=== PATIENT | female | born 1930 | race Caucasian/White ===

== ENCOUNTER 2017-05-16 06:55 | Day surgery (SDC) | payer MEDICARE ==
[2017-05-14 11:39] VITALS: BMI 32.7
[~2017-05-16 06:55] MED LIST: LACTATED RINGERS 1,000 ML IV SCH
[2017-05-16 07:14] VITALS: TEMP 97
[2017-05-16] MEDS ORDERED: LACTATED RINGERS 1,000 ML IV ONE (07:22)
[2017-05-16] MEDS ORDERED: PROPOFOL 10 MG/ML 20 ML VIAL IV ONE (07:40)
--- NOTE | 2017-05-16 07:55 | P.GSHP ---
History of Present Illness H&P Date: 05/16/17 Chief Complaint: Diverticulitis This is a 87-year-old female with complaints of diarrhea and abdominal pain. She has a history of diverticulitis. She presents today for colonoscopy. Past Medical History Past Medical History: Deep Vein Thrombosis (DVT), Eye Disorder, Hyperlipidemia, Hypertension, Osteoarthritis (OA) Additional Past Medical History / Comment(s): GLAUCOMA, chronic DVT's rt leg, diarrhea, severe lower abdominal gas pains, no current rx for cholesterol, History of Any Multi-Drug Resistant Organisms: None Reported Past Surgical History: Adenoidectomy, Appendectomy, Bowel Resection, Cholecystectomy, Hysterectomy, Orthopedic Surgery, Tonsillectomy Additional Past Surgical History / Comment(s): tania CATARACT SURGERY, left leg VEIN STRIPPING, left wrist surgery, Past Anesthesia/Blood Transfusion Reactions: No Reported Reaction Smoking Status: Never smoker - Past Family History Brother(s) Family Medical History: Cancer Sister(s) Family Medical History: Cancer Mother Family Medical History: Deep Vein Thrombosis (DVT) Medications and Allergies Home Medications Medication Instructions Recorded Confirmed Type Aspirin 81 mg PO BID 01/07/16 05/16/17 History Latanoprost [Xalatan 0.005%] 1 drop BOTH EYES HS 01/07/16 05/16/17 History Losartan Potassium 100 mg PO PC-SUPPER 01/07/16 05/16/17 History [place]-3 Fatty Acids [[place]-3] 1,000 mg PO DAILY 01/07/16 05/16/17 History Zolpidem Tartrate [Ambien Cr] 6.25 mg PO HS 01/07/16 05/16/17 History Systane Balance 1 drop BOTH EYES BID 05/14/17 05/16/17 History amLODIPine [Norvasc] 5 mg PO PC-SUPPER 05/14/17 05/16/17 History Allergies Allergy/AdvReac Type Severity Reaction Status Date / Time Sulfa (Sulfonamide Allergy Unknown Verified 05/16/17 07:19 Antibiotics) Tetracyclines Allergy Unknown Verified 05/16/17 07:19 raw eggs Allergy Diarrhea Uncoded 05/16/17 07:19 Surgical - Exam Vital Signs Temp Pulse 97.0 F L 82 05/16/17 07:13 05/16/17 07:13 - General well developed, no distress - Eyes PERRL - ENT normal pinna - Neck no masses - Respiratory normal expansion - Cardiovascular Rhythm: regular - Abdomen Mild left lower quadrant pain Abdomen: soft Assessment and Plan Plan: History of diverticulitis. We'll perform colonoscopy.
--- NOTE | 2017-05-16 08:21 | P.OP ---
Date of Procedure: 05/16/17 Preoperative Diagnosis: Diverticulitis he Postoperative Diagnosis: Diverticulosis Procedure(s) Performed: Colonoscopy Anesthesia: MAC Surgeon: Emil Contreras Pathology: none sent Condition: stable Disposition: PACU Description of Procedure: The patient's placed on the endoscopy table in the lateral position. He received IV sedation. Digital rectal exam was performed which revealed no ebonized. The flexible colonoscope was then placed patient anus passed rotator colon. The ileocecal valve was visualized. The cecum, ascending and transverse colon appeared normal. The descending and sigmoid colon had moderate diverticular changes. There is no evidence of diverticulitis. Scope was then brought back the rectum and this appeared normal. Scope was withdrawn for patient.
[2017-05-16 08:39] VITALS: BP 144/75; PULSE 61; RESP 18
== END 2017-05-16 09:04 | disposition home or self-care (01) ==
LOC: ORWHC2ENDO 06:55
PROVIDERS: ATTEND Surgery
DX: K57.30 Diverticulosis of large intestine without perforation or abscess without bleeding (principal); I10 Essential (primary) hypertension; E78.5 Hyperlipidemia, unspecified; I82.501 Chronic embolism and thrombosis of unspecified deep veins of right lower extremity; H40.9 Unspecified glaucoma; M19.90 Unspecified osteoarthritis, unspecified site; Z79.82 Long term (current) use of aspirin; Z79.899 Other long term (current) drug therapy; Z88.1 Allergy status to other antibiotic agents; Z91.012 Allergy to eggs; Z88.2 Allergy status to sulfonamides
CPT/HCPCS: 45378; J2704

== ENCOUNTER → 2019-01-01 | Outpatient (CLI) | payer MEDICARE ==
--- NOTE | 2019-01-02 10:14 | XR ---
EXAMINATION TYPE: XR lumbar spine 2 or 3V DATE OF EXAM: 01/01/2019 COMPARISON: None HISTORY: Pain x3 weeks TECHNIQUE: Three-view lumbar spine FINDINGS: There 5 lumbar-type tubal bodies. Pedicles are intact. Scoliosis is present with convexity to left centered at L3 There is a 6 lumbar lordosis. Degenerative disc changes are present throughout the lumbar spine. Vacu um disc phenomenon is present L4-5 minimal vacuum disc phenomenon may be present L2-3 L3-4. Retrolist hesis grade 1 approaching grade 2 L4 on L5 may be present. Vertebral body heights are preserved. IMPRESSION: 1. Degenerative disc changes. 2. Scoliosis. 3. Retrolisthesis of L4 on L5. 4. MRI could be performed for additional evaluation.
== END ==
LOC: RADXRMAIN 16:51
PROVIDERS: ATTEND Family Medicine
DX: M43.16 Spondylolisthesis, lumbar region (principal); M51.36 Other intervertebral disc degeneration, lumbar region; M41.86 Other forms of scoliosis, lumbar region
CPT/HCPCS: 72100

== ENCOUNTER → 2019-03-06 | Outpatient (CLI) | payer MEDICARE ==
--- NOTE | 2019-03-06 14:53 | US ---
EXAMINATION TYPE: US venous doppler duplex LE RT DATE OF EXAM: 03/06/2019 2:23 PM COMPARISON: 12/30/2015 CLINICAL HISTORY: M79.604 pain in limb RT. Right leg pain SIDE PERFORMED: Right TECHNIQUE: The lower extremity deep venous system is examined utilizing real time linear array sonog yashira with graded compression, doppler sonography and color-flow sonography. VESSELS IMAGED: External Iliac Vein (EIV) Common Femoral Vein Deep Femoral Vein Greater Saphenous Vein * Femoral Vein Popliteal Vein Small Saphenous Vein * Proximal Calf Veins (* superficial vessels) Grayscale, color doppler, spectral doppler imaging performed of the deep veins of the right lower ext remity. Right Leg: Thready flow in the Femoral Vein to the Popliteal Vein. Patient has history of chronic DV T in right leg at this location seen on the prior of 12/30/2015. 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 Clot burden appears similar.
== END | disposition home or self-care (01) ==
LOC: RADUSWWP 14:02
PROVIDERS: ATTEND Family Medicine
DX: I82.531 Chronic embolism and thrombosis of right popliteal vein (principal); I82.511 Chronic embolism and thrombosis of right femoral vein

== ENCOUNTER 2019-06-04 03:00 | Observation (INO) | payer MEDICARE ==
--- NOTE | 2019-06-04 03:01 | ED ---
General Adult HPI - General Stated complaint: Weakness Time Seen by Provider: 06/04/19 03:01 - History of Present Illness Initial comments: Shi is a pleasant 89-year-old female who presents the ER today via EMS. Patient reports that she went out to lunch yesterday, she began having some gassy abdominal pain throughout the day. She reports that when she went to bed she had crampy abdominal pain and was unable to sleep. Around 11:30 PM she got up and walked to the restroom where she reports she had about 90 minutes of nausea and diarrhea. Patient reports onset diarrhea subsided she attempted to get up to walk back to bed however she felt weak and unable to ambulate although it back to the bed so she laid down in the bathroom. She waited for approximately 90 more minutes but continued to feel nauseated week and can get back to bed at which time she decided to come to the ER for further evaluation. Upon her evaluation patient reports she still feeling nauseated and has crampy abdominal discomfort though she has not had diarrhea nearly 2 hours, she did take 2 antidiarrheal pills at home prior to coming to the emergency department. Patient denies any fevers chills chest pain or shortness of breath. - Related Data Home Medications Medication Instructions Recorded Confirmed Aspirin 81 mg PO BID 01/07/16 06/04/19 Latanoprost [Xalatan 0.005%] 1 drop BOTH EYES HS 01/07/16 06/04/19 Losartan Potassium 100 mg PO PC-SUPPER 01/07/16 06/04/19 [place]-3 Fatty Acids [[place]-3] 1,000 mg PO DAILY 01/07/16 06/04/19 Zolpidem Tartrate [Ambien Cr] 6.25 mg PO HS 01/07/16 06/04/19 Systane Balance 1 drop BOTH EYES BID 05/14/17 06/04/19 amLODIPine [Norvasc] 5 mg PO PC-SUPPER 05/14/17 06/04/19 Allergies Allergy/AdvReac Type Severity Reaction Status Date / Time Sulfa (Sulfonamide Allergy Unknown Verified 05/16/17 07:19 Antibiotics) Tetracyclines Allergy Unknown Verified 05/16/17 07:19 raw eggs Allergy Diarrhea Uncoded 05/16/17 07:19 Review of Systems ROS Statement: Those systems with pertinent positive or pertinent negative responses have been documented in the HPI. ROS Other: All systems not noted in ROS Statement are negative. Past Medical History Past Medical History: Deep Vein Thrombosis (DVT), Eye Disorder, Hyperlipidemia, Hypertension, Osteoarthritis (OA) Additional Past Medical History / Comment(s): GLAUCOMA, chronic DVT's rt leg, diarrhea, severe lower abdominal gas pains, no current rx for cholesterol, History of Any Multi-Drug Resistant Organisms: None Reported Past Surgical History: Adenoidectomy, Appendectomy, Bowel Resection, Cholecystectomy, Hysterectomy, Orthopedic Surgery, Tonsillectomy Additional Past Surgical History / Comment(s): tania CATARACT SURGERY, left leg VEIN STRIPPING, left wrist surgery, Past Anesthesia/Blood Transfusion Reactions: No Reported Reaction Smoking Status: Never smoker - Past Family History Brother(s) Family Medical History: Cancer Sister(s) Family Medical History: Cancer Mother Family Medical History: Deep Vein Thrombosis (DVT) General Exam - General Exam Comments Initial Comments: Physical Exam GENERAL: Dehydrated female HENT: Normocephalic, Atraumatic. EYES: PERRL, EOMI PULMONARY: Unlabored respirations. No audible rales rhonchi or wheezing was noted. CARDIOVASCULAR: There is a regular rate and rhythm without any murmurs gallops or rubs. ABDOMEN: Soft and nontender with normal bowel sounds. SKIN: Skin is clear with no lesions or rashes and otherwise unremarkable. : Deferred NEUROLOGIC: Patient is alert and oriented x3. Moving all extremities spontaneously MUSCULOSKELETAL: Normal extremities with adequate strength and full range of motion. No lower extremity swelling or edema. No calf tenderness. PSYCHIATRIC: Normal psychiatric evaluation. Course Vital Signs 06/04/19 06/04/19 06/04/19 03:01 03:49 04:00 Temperature 97.8 F Pulse Rate 93 75 79 Respiratory 20 18 23 Rate Blood Pressure 161/85 161/65 O2 Sat by Pulse 96 100 96 Oximetry 06/04/19 06/04/19 06/04/19 04:20 04:40 05:00 Temperature Pulse Rate 77 78 79 Respiratory 23 20 18 Rate Blood Pressure 150/67 143/67 143/67 O2 Sat by Pulse 97 97 97 Oximetry 06/04/19 06/04/19 06/04/19 05:30 06:00 06:10 Temperature Pulse Rate 81 82 85 Respiratory 18 19 19 Rate Blood Pressure 142/63 143/60 148/65 O2 Sat by Pulse 96 96 98 Oximetry 06/04/19 06/04/19 06:11 06:12 Temperature Pulse Rate 85 87 Respiratory 20 19 Rate Blood Pressure 144/65 149/71 O2 Sat by Pulse 97 96 Oximetry EKG Findings - EKG Comments: EKG Findings:: EKG was obtained due to complaint of weakness, EKG obtained at 3:09 AM, rate is 86 rhythm is sinus there is leftward axis with a left fascicular block, normal intervals, IN 136, QRS 106, QTC is [address] elevations or depressions no evidence of acute ischemia, infarction or arrhythmia. Medical Decision Making - Medical Decision Making Patient was seen and evaluated, history is obtained from the patient. This is an 89-year-old female whose appears to be suffering from food poisoning, she has nausea, diarrhea and appears dehydrated on exam. Patient reports generalized weakness and was unable to walk from her doctor back to bed. Labs and imaging were ordered. No previous labs for comparison however patient has elevated BUN and creatinine consistent with dehydration prerenal. IV fluids were ordered. After 1 L of IV fluids patient still feeling quite weak and unwell. Vital signs are stable however given the patient's advanced age and condition I don't feel she is safe for discharge home. Patient will be placed on observation for further IV fluid rehydration and symptomatic management. Orthostatic vital signs were obtained after patient received her fluid bolus. There is no significant change in orthostatic vitals however patient did report feeling very lightheaded and unwell. Patient felt better laying down. - Lab Data Result diagrams: 06/04/19 03:16 06/04/19 03:16 Lab Results 06/04/19 06/04/19 06/04/19 Range/Units 03:16 03:16 03:16 WBC 11.2 H (3.8-10.6) k/uL RBC 4.35 (3.80-5.40) m/uL Hgb 12.0 (11.4-16.0) gm/dL Hct 41.8 (34.0-46.0) % MCV 96.3 (80.0-100.0) fL MCH 27.7 (25.0-35.0) pg MCHC 28.8 L (31.0-37.0) g/dL RDW 13.8 (11.5-15.5) % Plt Count 202 (150-450) k/uL Neutrophils % 83 % Lymphocytes % 9 % Monocytes % 6 % Eosinophils % 1 % Basophils % 1 % Neutrophils # 9.3 H (1.3-7.7) k/uL Lymphocytes # 1.0 (1.0-4.8) k/uL Monocytes # 0.6 (0-1.0) k/uL Eosinophils # 0.1 (0-0.7) k/uL Basophils # 0.1 (0-0.2) k/uL Sodium 140 (137-145) mmol/L Potassium 4.7 (3.5-5.1) mmol/L Chloride 106 (98-107) mmol/L Carbon Dioxide 27 (22-30) mmol/L Anion Gap 7 mmol/L BUN 33 H (7-17) mg/dL Creatinine 1.26 H (0.52-1.04) mg/dL Est GFR (CKD-EPI)AfAm 44 (>60 ml/min/1.73 sqM) Est GFR (CKD-EPI)NonAf 38 (>60 ml/min/1.73 sqM) Glucose 138 H (74-99) mg/dL Calcium 9.7 (8.4-10.2) mg/dL Total Bilirubin 0.4 (0.2-1.3) mg/dL AST 25 (14-36) U/L ALT 24 (9-52) U/L Alkaline Phosphatase 64 (38-126) U/L Troponin I <0.012 (0.000-0.034) ng/mL Total Protein 7.4 (6.3-8.2) g/dL Albumin 4.4 (3.5-5.0) g/dL Lipase 184 (23-300) U/L Disposition Clinical Impression: Food poisoning, Dehydration Disposition: ADMITTED IP TO THIS [facility] Condition: Stable
[2019-06-04] MEDS ORDERED: SODIUM CHLORIDE 0.9% 1,000 ML IV STA (03:49)
[2019-06-04] MEDS ORDERED: ONDANSETRON 4 MG/2 ML VIAL IVP STA (03:49)
[2019-06-04] MEDS ORDERED: DICYCLOMINE 10 MG/ML 2 ML AMP IM STA (03:50)
[2019-06-04 04:06] LABS: Basophils # (A) 0.1 k/uL (0-0.2); Basophils % (A) 1 %; Eosinophils # (A) 0.1 k/uL (0-0.7); Eosinophils % (A) 1 %; HCT 41.8 % (34.0-46.0); Lymphocytes % (A) 9 %; MCH 27.7 pg (25.0-35.0); MCHC 28.8 g/dL (31.0-37.0); MCV 96.3 fL (80.0-100.0); Monocytes # (A) 0.6 k/uL (0-1.0); Monocytes % (A) 6 %; Neutrophils # (A) 9.3 k/uL (1.3-7.7); Neutrophils % (A) 83 %; Platelet Count 202 k/uL (150-450); RBC 4.35 m/uL (3.80-5.40); RDW 13.8 % (11.5-15.5); WBC 11.2 k/uL (3.8-10.6)
[2019-06-04 04:15] LABS: Albumin 4.4 g/dL (3.5-5.0); Calcium 9.7 mg/dL (8.4-10.2); Potassium 4.7 mmol/L (3.5-5.1); Total Bilirubin 0.4 mg/dL (0.2-1.3); Total Protein 7.4 g/dL (6.3-8.2)
--- NOTE | 2019-06-04 04:46 | XR ---
EXAMINATION TYPE: XR KUB DATE OF EXAM: 06/04/2019 COMPARISON: NONE HISTORY: Diarrhea. Weakness TECHNIQUE: 2 views upright FINDINGS: There is no sign of intestinal obstruction or pneumoperitoneum. Fecal pattern is normal. Th ere are clips from cholecystectomy. Lung bases are clear. There are no pathologic calcifications over the kidneys. IMPRESSION: Nonacute abdomen.
[2019-06-04] MEDS ORDERED: NALOXONE 0.4 MG/ML 1 ML VIAL IV PRN (05:33)
[2019-06-04] MEDS ORDERED: ONDANSETRON 4 MG/2 ML VIAL IVP PRN (05:33)
[2019-06-04] MEDS: SODIUM CHLORIDE 0.9% 1,000 ML IV SCH ×2 (05:46→17:34)
[2019-06-04 06:18] LABS: Appearance,Urine Clear (Clear); Bilirubin,Urine Negative (Negative); Blood,Urine Negative (Negative); Color,Urine Yellow; Glucose,Urine (UA) Negative (Negative); Ketones,Urine Negative (Negative); Leukocyte Esterase,Urine Negative (Negative); Nitrite,Urine Negative (Negative); PH, Urine 5.5 (5.0-8.0); Protein,Urine Negative (Negative); Specific Gravity,Urine 1.023 (1.001-1.035); Urobilinogen,Urine <2.0 mg/dL (<2.0)
[2019-06-04] MEDS ORDERED: FAMOTIDINE 20 MG TAB PO SCH (09:00)
[2019-06-04] MEDS: amLODIPine 5 MG TAB PO SCH (13:11)
--- NOTE | 2019-06-04 14:47 | P.HPIM ---
History of Present Illness H&P Date: 06/04/19 Chief Complaint: Nausea and vomiting This is an 89-year-old female one of Dr. 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, patient stated that she was in her usual state of health about yesterday at around 12:30 when she started to have an increased bowel pain associated with increased nausea with dry heaves and no vomiting, patient stated that she ate a beef stew dinner from Saturday that she made and she went yesterday for lunch with her friend and she had an on in supine oriental salad and then she developed to have the left lower quadrant abdominal pain associated with nausea but no vomiting and after that she that will significant diarrhea patient passed out and landed on the floor she hit the back of her head and she crawled to bed then she was brought into the ER for evaluation she had negative orthostatic changes however she was found to have a elevated BUN and creatinine slightly she was given IV fluid resuscitation she was admitted to the hospital she was given antibiotics and she was seen by us later on today she denies any chest pain she does complain of dyspnea on exertion, her EKG was rev iewed showed normal sinus rhythm with what appears to be left anterior fascicular block and because of her dyspnea she will have an echo care gram for evaluation of LV function at this time. Review of Systems Constitutional: Reports weakness, Denies anorexia, Denies chronic headaches, Denies lethargy, Denies malaise Eyes: denies blurred vision, denies bulging eye, denies decreased vision Ears: deny: decreased hearing Ears, nose, mouth and throat: Denies dysphagia, Denies neck lump, Denies sore throat Cardiovascular: Reports decreased exercise tolerance, Reports dyspnea on exertion, Reports shortness of breath, Denies chest pain, Denies lightheadedness, Denies rapid heart beat, Denies syncope Respiratory: Denies congestion, Denies cough, Denies cough with sputum, Denies home oxygen, Denies sleep apnea, Denies snoring, Denies wheezing Gastrointestinal: Reports abdominal pain, Reports bloating, Reports change in bowel habits, Reports diarrhea, Reports melena, Reports nausea, Denies heartburn, Denies hematemesis, Denies hematochezia, Denies indigestion, Denies loss of appetite, Denies vomiting Genitourinary: Denies dysuria, Denies hematuria Menstruation: Reports postmenopausal Musculoskeletal: Denies myalgias Musculoskeletal: absent: ankle pain, ankle stiffness, ankle swelling, elbow pain, elbow stiffness, elbow swelling, foot pain, foot stiffness, foot swelling, hand pain, hand stiffness, hand swelling, hip pain, hip stiffness, hip swelling, knee pain, knee stiffness, knee swelling, shoulder pain, shoulder stiffness, shoulder swelling, wrist pain, wrist stiffness, wrist swelling Integumentary: Denies pruritus, Denies rash Neurological: Denies numbness, Denies weakness Psychiatric: Denies anxiety, Denies depression Endocrine: Denies fatigue, Denies weight change Past Medical History Past Medical History: Deep Vein Thrombosis (DVT), Eye Disorder, Hyperlipidemia, Hypertension, Osteoarthritis (OA) Additional Past Medical History / Comment(s): Diverticulosis/diverticulitis, DVT R leg post bowel resection, DVT L leg as a teen, arthritis in hands/legs and feet, varicosities bilateral legs, glaucoma/macular degeneration bilaterally, not on RX for cholesterol. History of Any Multi-Drug Resistant Organisms: None Reported Past Surgical History: Adenoidectomy, Appendectomy, Bowel Resection, Cholecystectomy, Hysterectomy, Orthopedic Surgery, Tonsillectomy Additional Past Surgical History / Comment(s): Bowel resection for benign lesion, colonoscopies, D&C, left leg vein stripping, left wrist ligament surgery, bilateral cataracts/lens implants Past Anesthesia/Blood Transfusion Reactions: No Reported Reaction Smoking Status: Never smoker - Past Family History Brother(s) Family Medical History: Cancer (Patient had 4 brothers one from esophageal cancer one from diabetes and hypertension and other one with skin cancer.) Additional Family Medical History / Comment(s): skin cancer Sister(s) Family Medical History: Cancer (Patient had 4 sisters one from ovarian cancer and 1 with CAD one with AI and the other one is 94-year-old is okay.) Additional Family Medical History / Comment(s): Uterine cancer Mother Family Medical History: Coronary Artery Disease (CAD) (Mother at age of 85 from CAD also had history of DVT.), Deep Vein Thrombosis (DVT) Father Family Medical History: No Reported History (Father at age 94 from old age had history of sinuses.) Additional Family Medical History / Comment(s): Father was healthy and lived till 94 yrs. Medications and Allergies Home Medications Medication Instructions Recorded Confirmed Type Aspirin 81 mg PO QAM 01/07/16 06/04/19 History Latanoprost [Xalatan 0.005%] 1 drop BOTH EYES HS 01/07/16 06/04/19 History Losartan Potassium 100 mg PO QAM 01/07/16 06/04/19 History [place]-3 Fatty Acids [[place]-3] 1,000 mg PO DAILY 01/07/16 06/04/19 History Zolpidem Tartrate [Ambien Cr] 6.25 mg PO HS 01/07/16 06/04/19 History Systane Balance 1 drop BOTH EYES BID 05/14/17 06/04/19 History amLODIPine [Norvasc] 5 mg PO QAM 05/14/17 06/04/19 History Calcium Carbonate/Vitamin D3 1 tab PO DAILY 06/04/19 06/04/19 History [Calcium 500-Vit D3 200 Tablet] Cholecalciferol [Vitamin D3 (25 1,000 unit PO DAILY 06/04/19 06/04/19 History Mcg = 1000 Iu)] Cranberry Fruit Extract [Cranberry] 200 mg PO DAILY 06/04/19 06/04/19 History Grapeseed 200mg 200 mg PO HS 06/04/19 06/04/19 History Magnesium Citrate 125 mg PO QAM 06/04/19 06/04/19 History Multivitamins, Thera [Multivitamin 1 tab PO DAILY 06/04/19 06/04/19 History (formulary)] Thiamine [Vitamin B-1] 100 mg PO DAILY 06/04/19 06/04/19 History Ubidecarenone [Co Q-10] 200 mg PO QAM 06/04/19 06/04/19 History Vit C/E/Zn/Coppr/Lutein/Zeaxan 1 cap PO HS 06/04/19 06/04/19 History [Preservision Areds 2 Softgel] Vitamin E (Dl,Tocopheryl Acet) 400 unit PO DAILY 06/04/19 06/04/19 History [Vitamin E] Allergies Allergy/AdvReac Type Severity Reaction Status Date / Time Sulfa (Sulfonamide Allergy Unknown Verified 06/04/19 07:39 Antibiotics) influenza virus vaccine qs AdvReac Severe Nausea & Verified 06/04/19 07:39 [id number] (36 mos, up) Vomiting [From Fluarix Quad] Tetracyclines AdvReac Hallucinati Verified 06/04/19 07:39 ons raw eggs AdvReac Diarrhea Uncoded 06/04/19 07:39 Physical Exam Vitals: Vital Signs Temp Pulse Pulse Resp BP BP BP 06/04/19 13:10 76 143/64 06/04/19 07:45 98.0 F 80 16 144/72 06/04/19 06:12 87 19 149/71 06/04/19 06:11 85 20 144/65 06/04/19 06:10 85 19 148/65 06/04/19 06:00 82 19 143/60 06/04/19 05:30 81 18 142/63 06/04/19 05:00 79 18 143/67 06/04/19 04:40 78 20 143/67 06/04/19 04:20 77 23 150/67 06/04/19 04:00 79 23 161/65 06/04/19 03:49 75 18 161/85 06/04/19 03:01 97.8 F 93 20 Pulse Ox 06/04/19 13:10 06/04/19 07:45 94 L 06/04/19 06:12 96 06/04/19 06:11 97 06/04/19 06:10 98 06/04/19 06:00 96 06/04/19 05:30 96 06/04/19 05:00 97 06/04/19 04:40 97 06/04/19 04:20 97 06/04/19 04:00 96 06/04/19 03:49 100 06/04/19 03:01 96 Intake and Output 06/03/19 06/04/19 06/04/19 22:59 06:59 14:59 Intake Total 200 Balance 200 Intake: Oral 200 Other: Voiding Method Toilet # Voids 2 Weight 81.647 kg HEENT: Head is atraumatic, normocephalic, pupils were equal round reactive to light and accommodations, extraocular muscle movement were intact. Neck: Supple, no JVP, no carotid bruit no lymphadenopathy. Chest: Clear to auscultation bilaterally, no crackles no wheezes no chest wall tenderness no intercostal retractions. Heart: First heart sound is depressed, second heart sounds normal, there is no gallop or murmur. Abdomen: Soft mild tenderness to the left lower quadrant no rebound or guarding positive bowel sounds . Extremities: No edema, no calf tenderness, dorsalis pedis +1 bilaterally, bilateral varicose vein. Neurologic examination: Patient is awake alert and oriented 3, cranial nerves II-12 appear grossly intact muscle power 4 out of 5 in upper and lower extremities bilaterally. Results CBC & Chem 7: 06/04/19 03:16 06/04/19 03:16 Labs: Abnormal Lab Results - Last 24 Hours (Table) 06/04/19 06/04/19 Range/Units 03:16 03:16 WBC 11.2 H (3.8-10.6) k/uL MCHC 28.8 L (31.0-37.0) g/dL Neutrophils # 9.3 H (1.3-7.7) k/uL BUN 33 H (7-17) mg/dL Creatinine 1.26 H (0.52-1.04) mg/dL Glucose 138 H (74-99) mg/dL Thrombosis Risk Factor Assmnt - DVT/VTE Prophylaxis DVT/VTE Prophylaxis: Pharmacologic Prophylaxis ordered, Mechanical Prophylaxis ordered - Choose All That Apply Any of the Below Risk Factors Present?: Yes Each Factor Represents 1 point: Obesity (BMI >25) Other Risk Factors: Yes Each Risk Factor Represents 3 Points: Age 75 years or older, Family history of DVT/PE, History of DVT/PE Other congenital or acquired thrombophilia - If yes, enter type in comment: No Thrombosis Risk Factor Assessment Total Risk Factor Score: 10 Thrombosis Risk Factor Assessment Level: High Risk Assessment and Plan Assessment: Assessment and plan: 1. Minimal prerenal azotemia due to severe diarrhea with gastrointestinal fluid loss. Continue IV fluid resuscitation monitor the patient CMP in the next 24 hours, continue patient on antiemetic, advance diet as tolerated. 2. Dyspnea on exertion with abnormal EKG showing sinus rhythm with left anterior fascicular block. Echocardiogram for evaluation of LV function. 3. Hypertension and hypertensive cardiovascular disease continue losartan 100 mg once every day and amlodipine 5 mg orally once every day. 4. Hyperlipidemia. Patient is not on statin. 5. Osteoarthritis. Continue Tylenol as needed. 6. 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 7. Glaucoma. Continue current eyedrops. 8. DVT prophylaxis. Continue with heparin 5000 units subcutaneously every 12 hours. 9. GI prophylaxis. Continue Pepcid 20 mg orally once every day. 10. Admit to inpatient. Estimate a length of stay 2 midnights. 11. Patient's full code.
[2019-06-04] MEDS ORDERED: VIT A,C & E-LUTEIN-MINERALS 1 EACH TAB PO SCH (21:00)
[2019-06-04] MEDS ORDERED: ZOLPIDEM 5 MG TAB PO PRN (21:00)
[2019-06-04] MEDS ORDERED: LATANOPROST 0.005% OPHTH DROPS 2.5 ML BTL BOTH EYES SCH (21:00)
[2019-06-04] MEDS: HEPARIN SODIUM,PORCINE 5,000 UNIT/ML 1 ML VIAL SQ SCH (21:12)
[2019-06-04] MEDS: ARTIFICIAL TEARS-HYPROMELLOSE DROPS 15 ML BTL BOTH EYES SCH (21:12)
[2019-06-05] MEDS: SODIUM CHLORIDE 0.9% 1,000 ML IV SCH ×2 (01:43→07:56)
[2019-06-05] MEDS: amLODIPine 5 MG TAB PO SCH (07:52)
[2019-06-05] MEDS: ARTIFICIAL TEARS-HYPROMELLOSE DROPS 15 ML BTL BOTH EYES SCH (07:52)
[2019-06-05] MEDS: HEPARIN SODIUM,PORCINE 5,000 UNIT/ML 1 ML VIAL SQ SCH (07:53)
[2019-06-05 07:55] LABS: Basophils % (A) 1 %; Eosinophils # (A) 0.2 k/uL (0-0.7); Eosinophils % (A) 3 %; HCT 39.5 % (34.0-46.0); HGB 12.7 gm/dL (11.4-16.0); Lymphocytes # (A) 2.3 k/uL (1.0-4.8); Lymphocytes % (A) 35 %; MCH 31.1 pg (25.0-35.0); MCHC 32.2 g/dL (31.0-37.0); MCV 96.7 fL (80.0-100.0); Mean Platelet Volume 6.2; Monocytes # (A) 0.4 k/uL (0-1.0); Monocytes % (A) 6 %; Neutrophils # (A) 3.4 k/uL (1.3-7.7); Neutrophils % (A) 53 %; Platelet Count 173 k/uL (150-450); RBC 4.09 m/uL (3.80-5.40); RDW 13.6 % (11.5-15.5); WBC 6.4 k/uL (3.8-10.6)
[2019-06-05 08:20] LABS: Albumin 3.9 g/dL (3.5-5.0); Calcium 9.2 mg/dL (8.4-10.2); Potassium 4.7 mmol/L (3.5-5.1); Total Bilirubin 0.7 mg/dL (0.2-1.3); Total Protein 6.8 g/dL (6.3-8.2)
[2019-06-05] MEDS ORDERED: FAMOTIDINE 20 MG TAB PO SCH (09:00)
[2019-06-05] MEDS ORDERED: THIAMINE 100 MG TAB PO SCH (09:00)
[2019-06-05] MEDS ORDERED: LOSARTAN 50 MG TAB PO SCH (09:00)
[2019-06-05] MEDS ORDERED: CALCIUM CARB-VIT D 500MG-200UN 1 EACH TAB PO SCH (09:00)
[2019-06-05] MEDS ORDERED: MULTIVITAMINS, THERA 1 EACH TAB PO SCH (09:00)
[2019-06-05] MEDS ORDERED: CHOLECALCIFEROL 1,000 UNIT TAB PO SCH (09:00)
[2019-06-05] MEDS ORDERED: ASPIRIN 81 MG PO SCH (09:00)
[2019-06-05 14:36] VITALS: BP 133/77; PULSE 70; RESP 16; TEMP 97.5
--- NOTE | 2019-06-05 15:45 | P.DS ---
Providers Date of admission: 06/04/19 05:33 Expected date of discharge: 06/05/19 Attending physician: Olga Albright Primary care physician: Barrie Khan [place] Hospital Course: This is an 89-year-old female one of Dr. 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, patient stated that she was in her usual state of health about yesterday at around 12:30 when she started to have an increased bowel pain associated with increased nausea with dry heaves and no vomiting, patient stated that she ate a beef stew dinner from Saturday that she made and she went yesterday for lunch with her friend and she had an on in supine oriental salad and then she developed to have the left lower quadrant abdominal pain associated with nausea but no vomiting and after that she that will significant diarrhea patient passed out and landed on the floor she hit the back of her head and she crawled to bed then she was brought into the ER for evaluation she had negative orthostatic changes however she was found to have a elevated BUN and creatinine slightly she was given IV fluid resuscitation she was admitted to the hospital she was given antibiotics and she was seen by us later on today she denies any chest pain she does complain of dyspnea on exertion, her EKG was reviewed showed normal sinus rhythm with what appears to be left anterior fascicular block and because of her dyspnea she will have an echo care gram for evaluation of LV function at this time. 06/05: Patient has been afebrile, heart rate 70, blood pressure 133/77, pulse ox 96% on room air. Repeat CBC unremarkable, BUN 20 creatinine 0.95. Echocardiogram was reported as normal ejection fraction, moderate pulmonary hypertension, left atrial enlargement. Formal report will be available later. IV fluids discontinued. Patient states she has had a bowel movement today. Her abdomen is less sore. She has had no nausea or vomiting and is tolerating a diet. Patient will be discharged home today in stable condition. Discharge diagnoses: 1. Acute kidney injury due to severe diarrhea with gastrointestinal fluid loss. 2. Dyspnea on exertion with abnormal EKG showing sinus rhythm with left anter ior fascicular block. 3. Hypertension and hypertensive cardiovascular disease 4. Hyperlipidemia. 5. Osteoarthritis. 6. 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 7. Glaucoma. Discharge plan: Home Impression and plan of care have been directed as dictated by the signing physician. Franchesca Rowan nurse practitioner acting as scribe for signing physician. Patient Condition at Discharge: Good Plan - Discharge Summary Discharge Rx Participant: No New Discharge Prescriptions: Continue Latanoprost [Xalatan 0.005%] 1 drop BOTH EYES HS Zolpidem Tartrate [Ambien Cr] 6.25 mg PO HS Losartan Potassium 100 mg PO QAM Aspirin 81 mg PO QAM Sweet Briar-3 Fatty Acids [Sweet Briar-3] 1,000 mg PO DAILY amLODIPine [Norvasc] 5 mg PO QAM Systane Balance 1 drop BOTH EYES BID Vitamin E (Dl,Tocopheryl Acet) [Vitamin E] 400 unit PO DAILY Thiamine [Vitamin B-1] 100 mg PO DAILY Cholecalciferol [Vitamin D3 (25 Mcg = 1000 Iu)] 1,000 unit PO DAILY Multivitamins, Thera [Multivitamin (formulary)] 1 tab PO DAILY Magnesium Citrate 125 mg PO QAM Grapeseed 200mg 200 mg PO HS Cranberry Fruit Extract [Cranberry] 200 mg PO DAILY Ubidecarenone [Co Q-10] 200 mg PO QAM Calcium Carbonate/Vitamin D3 [Calcium 500-Vit D3 200 Tablet] 1 tab PO DAILY Vit C/E/Zn/Coppr/Lutein/Zeaxan [Preservision Areds 2 Softgel] 1 cap PO HS Discharge Medication List Aspirin 81 mg PO QAM 01/07/16 [History] Latanoprost [Xalatan 0.005%] 1 drop BOTH EYES HS 01/07/16 [History] Losartan Potassium 100 mg PO QAM 01/07/16 [History] Sweet Briar-3 Fatty Acids [Sweet Briar-3] 1,000 mg PO DAILY 01/07/16 [History] Zolpidem Tartrate [Ambien Cr] 6.25 mg PO HS 01/07/16 [History] Systane Balance 1 drop BOTH EYES BID 05/14/17 [History] amLODIPine [Norvasc] 5 mg PO QAM 05/14/17 [History] Calcium Carbonate/Vitamin D3 [Calcium 500-Vit D3 200 Tablet] 1 tab PO DAILY 06/04/19 [History] Cholecalciferol [Vitamin D3 (25 Mcg = 1000 Iu)] 1,000 unit PO DAILY 06/04/19 [History] Cranberry Fruit Extract [Cranberry] 200 mg PO DAILY 06/04/19 [History] Grapeseed 200mg 200 mg PO HS 06/04/19 [History] Magnesium Citrate 125 mg PO QAM 06/04/19 [History] Multivitamins, Thera [Multivitamin (formulary)] 1 tab PO DAILY 06/04/19 [History] Thiamine [Vitamin B-1] 100 mg PO DAILY 06/04/19 [History] Ubidecarenone [Co Q-10] 200 mg PO QAM 06/04/19 [History] Vit C/E/Zn/Coppr/Lutein/Zeaxan [Preservision Areds 2 Softgel] 1 cap PO HS 06/04/19 [History] Vitamin E (Dl,Tocopheryl Acet) [Vitamin E] 400 unit PO DAILY 06/04/19 [History] Follow up Appointment(s)/Referral(s): Barrie Khan MD [Primary Care Provider] - 06/10/19 12:00 pm Patient Instructions/Handouts: Dehydration (DC) Activity/Diet/Wound Care/Special Instructions: activity as tolerated regular diet Echocardiogram completed Discharge Disposition: HOME SELF-CARE
--- NOTE | 2019-06-27 15:50 | ECHOF ---
Referral Reason:LVF MEASUREMENTS -------- HEIGHT: 162.6 cm WEIGHT: 81.6 kg BP: 144/72 RVIDd: 4.2 cm (< 3.3) IVSd: 1.5 cm (0.6 - 1.1) LVIDd: 4.1 cm (3.9 - 5.3) LVPWd: 1.5 cm (0.6 - 1.1) IVSs: 1.6 cm LVIDs: 2.9 cm LVPWs: 2.0 cm LAESV Index (A-L): 40.04 ml/m Ao Diam: 3.5 cm (2.0 - 3.7) AV Cusp: 2.5 cm (1.5 - 2.6) MV EXCURSION: 13.838 mm (> 18.000) MV EF SLOPE: 78 mm/s (70 - 150) EPSS: 0.7 cm MV E Lazaro: 0.89 m/s MV DecT: 176 ms MV A Lazaro: 1.16 m/s MV E/A Ratio: 0.77 RAP: 5.00 mmHg RVSP: 57.70 mmHg FINDINGS -------- Sinus rhythm. This was a technically adequate study. The left ventricular size is normal. There is moderate concentric left ventricular hypertrophy. O verall left ventricular systolic function is normal with, an EF between 55 - 60 %. Increased Lap Gr ida II Diastolic Dysfunction. The right ventricle is severely enlarged. LA is severely dilated >40 ml/m2 RA appears enlarged. Interatrial and interventricular septum intact. The aortic valve is trileaflet and appears structurally normal. Trace amount of aortic regurgitatio n. There is no evidence of aortic stenosis. Mitral valve is thickened with myxomatous degeneration. The mitral valve leaflets are moderate to s everely thickened. Mild mitral annular calcification present. Moderate mitral regurgitation is pr esent. Cannot exclude mitral valve prolapse. Cannot rule out vegetation. Moderate tricuspid regurgitation present. There is moderate to severe pulmonary hypertension. The right ventricular systolic pressure, as measured by Doppler, is 57.70mmHg. Trace/mild (physiologic) pulmonic regurgitation. The aortic root size is normal. Normal inferior vena cava with normal inspiratory collapse consistent with estimated right atrial pre ssure of 5 mmHg. There is no pericardial effusion. CONCLUSIONS -------- 1. Sinus rhythm. 2. This was a technically adequate study. 3. The left ventricular size is normal. 4. There is moderate concentric left ventricular hypertrophy. 5. Overall left ventricular systolic function is normal with, an EF between 55 - 60 %. 6. Increased Lap Grade II Diastolic Dysfunction. 7. The right ventricle is severely enlarged. 8. LA is severely dilated >40 ml/m2 9. RA appears enlarged. 10. Interatrial and interventricular septum intact. 11. The aortic valve is trileaflet and appears structurally normal. 12. Trace amount of aortic regurgitation. 13. There is no evidence of aortic stenosis. 14. The mitral valve leaflets are moderate to severely thickened. 15. Mild mitral annular calcification present. 16. Moderate mitral regurgitation is present. 17. Cannot exclude mitral valve prolapse. 18. Cannot rule out vegetation. 19. Moderate tricuspid regurgitation present. 20. There is moderate to severe pulmonary hypertension. 21. The right ventricular systolic pressure, as measured by Doppler, is 57.70mmHg. 22. Trace/mild (physiologic) pulmonic regurgitation. 23. The aortic root size is normal. 24. Normal inferior vena cava with normal inspiratory collapse consistent with estimated right atrial pressure of 5 mmHg. 25. There is no pericardial effusion. LINE OUT WORKER: Yudith Gutiérrez RDCS
== END 2019-06-05 14:31 | disposition home or self-care (01) ==
LOC: EC 03:00 → 4MS4W 05:33
PROVIDERS: ADMIT Internal Medicine; ATTEND Internal Medicine
DX: R19.7 Diarrhea, unspecified (principal); N17.9 Acute kidney failure, unspecified; E86.0 Dehydration; R11.2 Nausea with vomiting, unspecified; R10.32 Left lower quadrant pain; I44.4 Left anterior fascicular block; R06.09 Other forms of dyspnea; I11.9 Hypertensive heart disease without heart failure; E78.5 Hyperlipidemia, unspecified; I82.501 Chronic embolism and thrombosis of unspecified deep veins of right lower extremity; H40.9 Unspecified glaucoma; E03.9 Hypothyroidism, unspecified; R55 Syncope and collapse; K57.90 Diverticulosis of intestine, part unspecified, without perforation or abscess without bleeding; I83.93 Asymptomatic varicose veins of bilateral lower extremities; H35.30 Unspecified macular degeneration; E66.9 Obesity, unspecified; Z68.30 Body mass index [BMI] 30.0-30.9, adult; M19.072 Primary osteoarthritis, left ankle and foot; M19.071 Primary osteoarthritis, right ankle and foot; M19.041 Primary osteoarthritis, right hand; M19.042 Primary osteoarthritis, left hand; Z79.82 Long term (current) use of aspirin; Z79.899 Other long term (current) drug therapy; Z88.1 Allergy status to other antibiotic agents; Z88.2 Allergy status to sulfonamides; Z91.012 Allergy to eggs; Z90.49 Acquired absence of other specified parts of digestive tract; Z90.710 Acquired absence of both cervix and uterus; Z98.42 Cataract extraction status, left eye; Z98.41 Cataract extraction status, right eye; Z96.1 Presence of intraocular lens; Z80.49 Family history of malignant neoplasm of other genital organs; Z80.9 Family history of malignant neoplasm, unspecified; Z82.49 Family history of ischemic heart disease and other diseases of the circulatory system; Z83.3 Family history of diabetes mellitus; Z80.8 Family history of malignant neoplasm of other organs or systems; Z80.0 Family history of malignant neoplasm of digestive organs; Z80.41 Family history of malignant neoplasm of ovary
CPT/HCPCS: 96361 ×3; 96372 ×2; 96374; 99285; 36415; 93005; 93306; 97161; 80053 ×2; 83690; 84484; 85025 ×2; 81003; 74018; G0378 ×2; J1644 ×2; J2405

== ENCOUNTER → 2020-05-19 | Outpatient (CLI) | payer MEDICARE ==
[2020-05-19 15:36] LABS: HCT 43.2 % (34.0-46.0); HGB 13.6 gm/dL (11.4-16.0); MCH 31.2 pg (25.0-35.0); MCHC 31.4 g/dL (31.0-37.0); MCV 99.4 fL (80.0-100.0); Mean Platelet Volume 7.3; Platelet Count 209 k/uL (150-450); RBC 4.35 m/uL (3.80-5.40); RDW 13.7 % (11.5-15.5); WBC 7.9 k/uL (3.8-10.6)
[2020-05-20 07:18] LABS: African American GFR (CKD) 35.7 (60.0-200.0); Anion Gap 12.7 mmol/L (4.00-12.00); Calcium 10.3 mg/dL (8.7-10.3); Carbon Dioxide 26.3 mmol/L (21.6-31.8); Non-African American GFR(CKD) 30.8 (60.0-200.0); Potassium 5.2 mmol/L (3.5-5.5)
== END | disposition home or self-care (01) ==
LOC: LABWHC1 14:27
PROVIDERS: ATTEND Internal Medicine Interventional Cardiology
DX: N18.9 Chronic kidney disease, unspecified (principal)
CPT/HCPCS: 36415; 80048; 85027

== ENCOUNTER → 2020-05-25 | Outpatient (CLI) | payer MEDICARE ==
[2020-05-25 21:55] LABS: African American GFR (CKD) 38.8 (60.0-200.0); Anion Gap 12.1 mmol/L (4.00-12.00); Carbon Dioxide 25.9 mmol/L (21.6-31.8); Non-African American GFR(CKD) 33.5 (60.0-200.0); Potassium 4.7 mmol/L (3.5-5.5)
== END | disposition home or self-care (01) ==
LOC: LABWHC1 12:35
PROVIDERS: ATTEND Family Medicine
DX: I50.9 Heart failure, unspecified (principal)
CPT/HCPCS: 36415; 80051; 82565; 84520

== ENCOUNTER 2020-05-27 16:01 | Inpatient (IN) | payer MEDICARE ==
[2020-05-27] MEDS ORDERED: SODIUM CHLORIDE 0.9% 500 ML 500 ML IV ONE (16:42)
--- NOTE | 2020-05-27 16:42 | ED ---
Arrhythmia/Palpitations HPI - General Chief Complaint: Arrhythmia/Palpitations Stated Complaint: Heart Flutter Time Seen by Provider: 05/27/20 16:23 Source: patient Mode of arrival: ambulatory Limitations: no limitations - History of Present Illness Initial Comments: Patient is an 89-year-old female past history of DVT, hypertension, hyperlipidemia who presents emergency room with report of palpitations. States that they were sudden onset around 3 PM this afternoon. She was sitting in a chair watching TV when it came on. Admits to associated shortness of breath. No history of irregular heart rhythm in the past. Denies any chest pain. No ripping or tearing sensation to her back. No recent medication changes. Patient has a history of DVT. Is not on any anticoagulation. Denies any calf pain or swelling. No other alleviating, precipitating or modifying factors - Related Data Home Medications Medication Instructions Recorded Confirmed Aspirin 81 mg PO DAILY 01/07/16 05/27/20 Losartan Potassium 100 mg PO DAILY 01/07/16 05/27/20 Shaw-3 Fatty Acids [Shaw-3] 1,000 mg PO DAILY 01/07/16 05/27/20 Zolpidem Tartrate [Ambien Cr] 6.25 mg PO HS 01/07/16 05/27/20 Systane Balance 1 drop BOTH EYES BID 05/14/17 05/27/20 Calcium Carbonate/Vitamin D3 1 tab PO DAILY 06/04/19 05/27/20 [Calcium 500-Vit D3 200 Tablet] Cholecalciferol [Vitamin D3 (25 1,000 unit PO DAILY 06/04/19 05/27/20 Mcg = 1000 Iu)] Cranberry Fruit Extract [Cranberry] 200 mg PO DAILY 06/04/19 05/27/20 Grapeseed 200mg 200 mg PO HS 06/04/19 05/27/20 Magnesium Citrate 125 mg PO DAILY 06/04/19 05/27/20 Multivitamins, Thera [Multivitamin 1 tab PO DAILY 06/04/19 05/27/20 (formulary)] Vit C/E/Zn/Coppr/Lutein/Zeaxan 1 cap PO HS 06/04/19 05/27/20 [Preservision Areds 2 Softgel] Vitamin E (Dl,Tocopheryl Acet) 400 unit PO DAILY 06/04/19 05/27/20 [Vitamin E] Bimatoprost [Lumigan .01% Ophth 1 drop BOTH EYES HS 05/05/20 05/27/20 Soln] Vitamin B Complex 1 cap PO DAILY 05/05/20 05/27/20 amLODIPine [Norvasc] 2.5 mg PO DAILY 05/27/20 05/27/20 Previous Rx's Medication Instructions Recorded Famotidine [Pepcid] 20 mg PO DAILY #30 tab 05/09/20 Furosemide [Lasix] 40 mg PO BID@0900,1600 #60 tab 05/09/20 Spironolactone [Aldactone] 25 mg PO DAILY #30 tab 05/09/20 Allergies Allergy/AdvReac Type Severity Reaction Status Date / Time Sulfa (Sulfonamide Allergy Unknown Verified 05/27/20 17:37 Antibiotics) influenza virus vaccine qs AdvReac Severe Nausea & Verified 05/27/20 17:37 [id number] (36 mos, up) Vomiting [From Fluarix Quad] Tetracyclines AdvReac Hallucinati Verified 05/27/20 17:37 ons raw eggs AdvReac Diarrhea Uncoded 05/27/20 17:37 Review of Systems ROS Statement: Those systems with pertinent positive or pertinent negative responses have been documented in the HPI. ROS Other: All systems not noted in ROS Statement are negative. Past Medical History Past Medical History: Deep Vein Thrombosis (DVT), Eye Disorder, Hyperlipidemia, Hypertension, Osteoarthritis (OA), Syncope, Vascular Disorder Additional Past Medical History / Comment(s): Diverticulosis/diverticulitis, DVT R leg post bowel resection, DVT L leg as a teen, arthritis in hands/legs and feet, varicosities bilateral legs, glaucoma/macular degeneration bilaterally, UTIs, not currently on RX for cholesterol or htn. History of Any Multi-Drug Resistant Organisms: None Reported Past Surgical History: Adenoidectomy, Appendectomy, Bowel Resection, Cholecystectomy, Hysterectomy, Orthopedic Surgery, Tonsillectomy Additional Past Surgical History / Comment(s): Bowel resection for diverticular disease, colonoscopies, D&C, left leg vein stripping, left wrist ligament surgery, bilateral cataracts/lens implants Past Anesthesia/Blood Transfusion Reactions: No Reported Reaction Additional Past Anesthesia/Blood Transfusion Reaction / Comment(s): Pt received blood associated with childbirth without reaction. Past Psychological History: No Psychological Hx Reported Smoking Status: Never smoker Past Alcohol Use History: None Reported Past Drug Use History: None Reported - Past Family History Brother(s) Family Medical History: Cancer Additional Family Medical History / Comment(s): skin cancer Sister(s) Family Medical History: Cancer Additional Family Medical History / Comment(s): Uterine cancer Mother Family Medical History: Coronary Artery Disease (CAD), Vascular Disorder Additional Family Medical History / Comment(s): Mother lived to be 85 yrs old. She had varicosities Father Family Medical History: No Reported History (Father at age 94 from old age had history of sinuses.) Additional Family Medical History / Comment(s): Father was healthy and lived till 94 yrs. He had sinus problems General Exam Limitations: no limitations General appearance: alert, in no apparent distress Head exam: Present: atraumatic, normocephalic, normal inspection Eye exam: Present: normal appearance, PERRL, EOMI. Absent: scleral icterus, conjunctival injection, periorbital swelling ENT exam: Present: normal exam, mucous membranes moist Neck exam: Present: normal inspection. Absent: tenderness, meningismus, lymphadenopathy Respiratory exam: Present: normal lung sounds bilaterally. Absent: respiratory distress, wheezes, rales, rhonchi, stridor Cardiovascular Exam: Present: regular rate, tachycardia, normal heart sounds. Absent: systolic murmur, diastolic murmur, rubs, gallop, clicks GI/Abdominal exam: Present: soft, normal bowel sounds. Absent: distended, tenderness, guarding, rebound, rigid Extremities exam: Present: normal inspection, full ROM, normal capillary refill. Absent: tenderness, pedal edema, joint swelling, calf tenderness Back exam: Present: normal inspection Neurological exam: Present: alert, oriented X3, CN II-XII intact Psychiatric exam: Present: normal affect, normal mood Skin exam: Present: warm, dry, intact, normal color. Absent: rash Course Vital Signs 05/27/20 05/27/20 16:12 17:25 Temperature 98.2 F Pulse Rate 155 H 72 Respiratory 22 18 Rate Blood Pressure 114/77 124/70 O2 Sat by Pulse 98 100 Oximetry EKG Findings - EKG Comments: EKG Findings:: EKG demonstrates a supraventricular tachycardia with a rate of 139. QRS 108. QRS complexes are regularly spaced. QTC of 465. No acute ST segment elevations. ST depression in 1 and aVL. Repeat EKG at 1733 demonst rates normal sinus rhythm with a ventricular rate of 81. OH interval 200. QRS 112. QTC of 413. No acute ST segment elevation or depressions Medical Decision Making - Medical Decision Making Upon arrival the patient is placed into room 1. A thorough history and physical exam was performed. Patient is place on continuous pulse ox and cardiac monitoring. She does have a rate of 145 which is regular. 12-lead EKG was performed which demonstrates a slow SVT. Laboratory studies were conducted and the patient went for chest x-ray. IV is established. We did attempt Valsalva maneuvers as well as modified Valsalva without improvement in the patient's heart rate. We then discussed treatment with adenosine. Patient was placed on cardiac pads with continuous twelve-lead EKG. 6 mg was pushed with conversion to normal sinus rhythm. Patient has complete resolution of her symptoms. At this time he did recommend hospital admission for cardiology consultation which the patient did agree. Patient remained asymptomatic awaiting transport to the floor - Lab Data Result diagrams: 05/28/20 04:39 05/31/20 07:57 Lab Results 05/27/20 05/27/20 05/27/20 Range/Units 16:51 16:51 16:51 WBC 7.7 (3.8-10.6) k/uL RBC 4.33 (3.80-5.40) m/uL Hgb 13.3 (11.4-16.0) gm/dL Hct 41.8 (34.0-46.0) % MCV 96.5 (80.0-100.0) fL MCH 30.8 (25.0-35.0) pg MCHC 31.9 (31.0-37.0) g/dL RDW 13.7 (11.5-15.5) % Plt Count 178 (150-450) k/uL Neutrophils % 51 % Lymphocytes % 36 % Monocytes % 8 % Eosinophils % 2 % Basophils % 0 % Neutrophils # 3.9 (1.3-7.7) k/uL Lymphocytes # 2.8 (1.0-4.8) k/uL Monocytes # 0.6 (0-1.0) k/uL Eosinophils # 0.2 (0-0.7) k/uL Basophils # 0.0 (0-0.2) k/uL PT 9.6 (9.0-12.0) sec INR 0.9 (<1.2) APTT 20.0 L (22.0-30.0) sec Sodium 132 L (137-145) mmol/L Potassium 4.3 (3.5-5.1) mmol/L Chloride 98 (98-107) mmol/L Carbon Dioxide 24 (22-30) mmol/L Anion Gap 10 mmol/L BUN 45 H (7-17) mg/dL Creatinine 1.49 H (0.52-1.04) mg/dL Est GFR (CKD-EPI)AfAm 36 (>60 ml/min/1.73 sqM) Est GFR (CKD-EPI)NonAf 31 (>60 ml/min/1.73 sqM) Glucose 150 H (74-99) mg/dL Calcium 10.2 (8.4-10.2) mg/dL Magnesium 2.3 (1.6-2.3) mg/dL Total Bilirubin 0.7 (0.2-1.3) mg/dL AST 31 (14-36) U/L ALT 18 (4-34) U/L Alkaline Phosphatase 59 (38-126) U/L Troponin I (0.000-0.034) ng/mL Total Protein 7.5 (6.3-8.2) g/dL Albumin 4.5 (3.5-5.0) g/dL TSH (0.465-4.680) mIU/L 05/27/20 05/27/20 05/27/20 Range/Units 16:51 19:31 23:35 WBC (3.8-10.6) k/uL RBC (3.80-5.40) m/uL Hgb (11.4-16.0) gm/dL Hct (34.0-46.0) % MCV (80.0-100.0) fL MCH (25.0-35.0) pg MCHC (31.0-37.0) g/dL RDW (11.5-15.5) % Plt Count (150-450) k/uL Neutrophils % % Lymphocytes % % Monocytes % % Eosinophils % % Basophils % % Neutrophils # (1.3-7.7) k/uL Lymphocytes # (1.0-4.8) k/uL Monocytes # (0-1.0) k/uL Eosinophils # (0-0.7) k/uL Basophils # (0-0.2) k/uL PT (9.0-12.0) sec INR (<1.2) APTT (22.0-30.0) sec Sodium (137-145) mmol/L Potassium (3.5-5.1) mmol/L Chloride (98-107) mmol/L Carbon Dioxide (22-30) mmol/L Anion Gap mmol/L BUN (7-17) mg/dL Creatinine (0.52-1.04) mg/dL Est GFR (CKD-EPI)AfAm (>60 ml/min/1.73 sqM) Est GFR (CKD-EPI)NonAf (>60 ml/min/1.73 sqM) Glucose (74-99) mg/dL Calcium (8.4-10.2) mg/dL Magnesium (1.6-2.3) mg/dL Total Bilirubin (0.2-1.3) mg/dL AST (14-36) U/L ALT (4-34) U/L Alkaline Phosphatase (38-126) U/L Troponin I 0.013 0.032 0.057 H* (0.000-0.034) ng/mL Total Protein (6.3-8.2) g/dL Albumin (3.5-5.0) g/dL TSH (0.465-4.680) mIU/L 05/27/20 05/28/20 05/28/20 Range/Units 23:35 04:39 04:39 WBC 5.8 (3.8-10.6) k/uL RBC 4.02 (3.80-5.40) m/uL Hgb 12.4 (11.4-16.0) gm/dL Hct 39.0 (34.0-46.0) % MCV 97.1 (80.0-100.0) fL MCH 30.9 (25.0-35.0) pg MCHC 31.8 (31.0-37.0) g/dL RDW 14.0 (11.5-15.5) % Plt Count 168 (150-450) k/uL Neutrophils % 49 % Lymphocytes % 37 % Monocytes % 9 % Eosinophils % 3 % Basophils % 0 % Neutrophils # 2.9 (1.3-7.7) k/uL Lymphocytes # 2.2 (1.0-4.8) k/uL Monocytes # 0.5 (0-1.0) k/uL Eosinophils # 0.2 (0-0.7) k/uL Basophils # 0.0 (0-0.2) k/uL PT (9.0-12.0) sec INR (<1.2) APTT (22.0-30.0) sec Sodium 135 L (137-145) mmol/L Potassium 4.3 (3.5-5.1) mmol/L Chloride 101 (98-107) mmol/L Carbon Dioxide 27 (22-30) mmol/L Anion Gap 7 mmol/L BUN 38 H (7-17) mg/dL Creatinine 1.28 H (0.52-1.04) mg/dL Est GFR (CKD-EPI)AfAm 43 (>60 ml/min/1.73 sqM) Est GFR (CKD-EPI)NonAf 38 (>60 ml/min/1.73 sqM) Glucose 111 H (74-99) mg/dL Calcium 9.5 (8.4-10.2) mg/dL Magnesium (1.6-2.3) mg/dL Total Bilirubin 0.7 (0.2-1.3) mg/dL AST 23 (14-36) U/L ALT 15 (4-34) U/L Alkaline Phosphatase 51 (38-126) U/L Troponin I (0.000-0.034) ng/mL Total Protein 6.4 (6.3-8.2) g/dL Albumin 3.7 (3.5-5.0) g/dL TSH 1.220 (0.465-4.680) mIU/L 05/28/20 Range/Units 04:39 WBC (3.8-10.6) k/uL RBC (3.80-5.40) m/uL Hgb (11.4-16.0) gm/dL Hct (34.0-46.0) % MCV (80.0-100.0) fL MCH (25.0-35.0) pg MCHC (31.0-37.0) g/dL RDW (11.5-15.5) % Plt Count (150-450) k/uL Neutrophils % % Lymphocytes % % Monocytes % % Eosinophils % % Basophils % % Neutrophils # (1.3-7.7) k/uL Lymphocytes # (1.0-4.8) k/uL Monocytes # (0-1.0) k/uL Eosinophils # (0-0.7) k/uL Basophils # (0-0.2) k/uL PT (9.0-12.0) sec INR (<1.2) APTT (22.0-30.0) sec Sodium (137-145) mmol/L Potassium (3.5-5.1) mmol/L Chloride (98-107) mmol/L Carbon Dioxide (22-30) mmol/L Anion Gap mmol/L BUN (7-17) mg/dL Creatinine (0.52-1.04) mg/dL Est GFR (CKD-EPI)AfAm (>60 ml/min/1.73 sqM) Est GFR (CKD-EPI)NonAf (>60 ml/min/1.73 sqM) Glucose (74-99) mg/dL Calcium (8.4-10.2) mg/dL Magnesium (1.6-2.3) mg/dL Total Bilirubin (0.2-1.3) mg/dL AST (14-36) U/L ALT (4-34) U/L Alkaline Phosphatase (38-126) U/L Troponin I 0.043 H* (0.000-0.034) ng/mL Total Protein (6.3-8.2) g/dL Albumin (3.5-5.0) g/dL TSH (0.465-4.680) mIU/L Critical Care Time Critical Care Time: Yes Total Critical Care Time: 32 Disposition Clinical Impression: SVT (supraventricular tachycardia), Palpitations Disposition: ADMITTED IP TO THIS [facility] Condition: Stable Is patient prescribed a controlled substance at d/c from ED?: No Decision to Admit Reason: Admit from EC Decision Date: 05/27/20 Decision Time: 17:46
[2020-05-27] MEDS ORDERED: ADENOSINE 3 MG/ML 2 ML VIAL IVP STA (16:50)
[2020-05-27 16:59] LABS: Basophils % (A) 0 %; Eosinophils # (A) 0.2 k/uL (0-0.7); Eosinophils % (A) 2 %; HCT 41.8 % (34.0-46.0); HGB 13.3 gm/dL (11.4-16.0); Lymphocytes # (A) 2.8 k/uL (1.0-4.8); Lymphocytes % (A) 36 %; MCH 30.8 pg (25.0-35.0); MCHC 31.9 g/dL (31.0-37.0); MCV 96.5 fL (80.0-100.0); Mean Platelet Volume 7.1; Monocytes # (A) 0.6 k/uL (0-1.0); Monocytes % (A) 8 %; Neutrophils # (A) 3.9 k/uL (1.3-7.7); Neutrophils % (A) 51 %; Platelet Count 178 k/uL (150-450); RBC 4.33 m/uL (3.80-5.40); RDW 13.7 % (11.5-15.5); WBC 7.7 k/uL (3.8-10.6)
--- NOTE | 2020-05-27 17:07 | XR ---
EXAMINATION TYPE: XR chest 2V DATE OF EXAM: 05/27/2020 COMPARISON: 05/05/2020 HISTORY: Dysrhythmia TECHNIQUE: 2 views FINDINGS: There is no heart failure nor confluent pneumonic infiltrate. Costophrenic angles are clear . There are chest leads. IMPRESSION: No active cardiopulmonary disease. There is clearing of the pulmonary congestion and mini mal pleural fluid compared to old exam.
[2020-05-27 17:08] LABS: Albumin 4.5 g/dL (3.5-5.0); Calcium 10.2 mg/dL (8.4-10.2); Magnesium 2.3 mg/dL (1.6-2.3); Potassium 4.3 mmol/L (3.5-5.1); Total Bilirubin 0.7 mg/dL (0.2-1.3); Total Protein 7.5 g/dL (6.3-8.2)
[2020-05-27 17:22] LABS: INR 0.9 (<1.2); Prothrombin Time 9.6 sec (9.0-12.0)
[2020-05-27] MEDS ORDERED: NALOXONE 0.4 MG/ML 1 ML VIAL IV PRN (17:47)
[2020-05-28 05:09] LABS: Basophils % (A) 0 %; Eosinophils # (A) 0.2 k/uL (0-0.7); Eosinophils % (A) 3 %; HGB 12.4 gm/dL (11.4-16.0); Lymphocytes # (A) 2.2 k/uL (1.0-4.8); Lymphocytes % (A) 37 %; MCH 30.9 pg (25.0-35.0); MCHC 31.8 g/dL (31.0-37.0); MCV 97.1 fL (80.0-100.0); Mean Platelet Volume 6.9; Monocytes # (A) 0.5 k/uL (0-1.0); Monocytes % (A) 9 %; Neutrophils # (A) 2.9 k/uL (1.3-7.7); Neutrophils % (A) 49 %; Platelet Count 168 k/uL (150-450); RBC 4.02 m/uL (3.80-5.40); WBC 5.8 k/uL (3.8-10.6)
[2020-05-28 05:40] LABS: Albumin 3.7 g/dL (3.5-5.0); Calcium 9.5 mg/dL (8.4-10.2); Potassium 4.3 mmol/L (3.5-5.1); Total Bilirubin 0.7 mg/dL (0.2-1.3); Total Protein 6.4 g/dL (6.3-8.2)
[2020-05-28] MEDS ORDERED: NON FORMULARY DRUG (Vitamin B Complex [Vitamin B Complex] 1 EACH Capsule) PO SCH (09:00)
[2020-05-28] MEDS ORDERED: NON FORMULARY DRUG (Magnesium Citrate [Magnesium Citrate] 125 MG Capsule) PO SCH (09:00)
[2020-05-28] MEDS ORDERED: NON FORMULARY DRUG (Cranberry Fruit Extract [Cranberry] 200 MG Capsule) PO SCH (09:00)
[2020-05-28] MEDS ORDERED: NON FORMULARY DRUG (Omega-3 Fatty Acids [Omega-3] 1,000 MG Capsule) PO SCH (09:00)
[2020-05-28] MEDS ORDERED: METOPROLOL SUCCINATE (ER) 25 MG TAB.ER.24H PO SCH (09:00)
[2020-05-28] MEDS ORDERED: FUROSEMIDE 40 MG TAB PO SCH (09:00)
[2020-05-28] MEDS ORDERED: SPIRONOLACTONE 25 MG TAB PO SCH (09:00)
[2020-05-28] MEDS: LOSARTAN 50 MG TAB PO SCH (09:36)
[2020-05-28] MEDS: HEPARIN SODIUM,PORCINE 5,000 UNIT/ML 1 ML VIAL SQ SCH ×2 (09:36→21:41)
[2020-05-28] MEDS: FAMOTIDINE 20 MG TAB PO SCH (09:37)
[2020-05-28] MEDS: CALCIUM CARB-VIT D 500MG-200UN 1 EACH TAB PO SCH (09:37)
[2020-05-28] MEDS: CHOLECALCIFEROL 1,000 UNIT TAB PO SCH (09:37)
[2020-05-28] MEDS: MULTIVITAMINS, THERA 1 EACH TAB PO SCH (09:37)
[2020-05-28] MEDS: ASPIRIN 81 MG PO SCH (09:38)
[2020-05-28] MEDS: amLODIPine 2.5 MG TAB PO SCH (09:39)
--- NOTE | 2020-05-28 09:47 | P.HPIM ---
History of Present Illness H&P Date: 05/27/20 Chief Complaint: A. fib with RVR, tachycardia, angina chest pain, congestive heart failure w 60-year-old female one of Dr. Khan patient was seen 3 weeks ago for exacerbation of systolic congestive heart failure who is known to have history of DVT, hypertension, hyperlipidemia and mild diastolic heart failure on an echocardiogram who was post to see Dr. Gaona cardiology in his office in the meanwhile remain on current diuretics. Patient apparently had some help with her neighbor who went shopping for her on 05/27/2020 as she is putting her shopping back patient developed to have mild tachycardia was more shaky tiredness fatigue have mild chest tightness and discomfort she had A. fib bit showing on the screen pulse rate running 124 and as time goes by patient become more symptomatic with pressure and discomfort pulse rate and been climbing 136 and further 154 she ended up calling her neighbor and decided to come to the emergency department at [facility] without having to, by EMS. At the time was seen she was tachycardic with PVCs with? Of A. fib 1 dose of adenosine patient converted and become in the 70s continue to have quite bed shakiness discomfort and shortness of breath patient was hospitalized for the above problem. Review of Systems CONSTITUTIONAL: Well-developed no acute respiratory distress. EYES: No icterus sclerae, no conjunctivitis. EARS, NOSE, MOUTH, THROAT, and FACE: No sore throat, lymphadenopathy, carotid bruits or deformity. RESPIRATORY: Positive shortness of breath no cough or wheezes. CARDIOVASCULAR: Positive palpitation positive PND and orthopnea question of angina as well. GASTROINTESTINAL: No Abd pain, Nausea or vomiting, no Diarrhea or constipation, No GI Bleed, no distention or masses. GENITOURINARY: Negative for Hematuria or UTI, no kidney stones. INTEGUMENT/BREAST: Negative for any muscular injury with mild osteoarthritis.. HEMATOLOGIC/LYMPHATIC: Negative for bleed or purpura. MUSCULOSKELTAL: Negative for Myalgia or arthralgia. NEURLOGICAL: No LOC, Sz or syncope, blurred vision dizziness or abnormality.. BEHAVIORAL/PSYCH: Negative. ENDOCRINE: Negative. Past Medical History Past Medical History: Heart Failure, Deep Vein Thrombosis (DVT), Eye Disorder, Hyperlipidemia, Hypertension, Osteoarthritis (OA), Syncope, Vascular Disorder Additional Past Medical History / Comment(s): Diverticulosis/diverticulitis, DVT R leg post bowel resection, DVT L leg as a teen, arthritis in hands/legs and feet, varicosities bilateral legs, glaucoma/macular degeneration bilaterally, UTIs, not currently on RX for cholesterol or htn. History of Any Multi-Drug Resistant Organisms: None Reported Past Surgical History: Adenoidectomy, Appendectomy, Bowel Resection, Cholecystectomy, Hysterectomy, Orthopedic Surgery, Tonsillectomy Additional Past Surgical History / Comment(s): Bowel resection for diverticular disease, colonoscopies, D&C, left leg vein stripping, left wrist ligament surgery, bilateral cataracts/lens implants Past Anesthesia/Blood Transfusion Reactions: No Reported Reaction Additional Past Anesthesia/Blood Transfusion Reaction / Comment(s): Pt received blood associated with childbirth without reaction. Past Psychological History: No Psychological Hx Reported Additional Psychological History / Comment(s): Pt resides alone in a condo. She uses no assistive device. She drives. Smoking Status: Never smoker Past Alcohol Use History: None Reported Past Drug Use History: None Reported - Past Family History Brother(s) Family Medical History: Cancer Additional Family Medical History / Comment(s): skin cancer Sister(s) Family Medical History: Cancer Additional Family Medical History / Comment(s): Uterine cancer Mother Family Medical History: Coronary Artery Disease (CAD), Vascular Disorder Additional Family Medical History / Comment(s): Mother lived to be 85 yrs old. She had varicosities Father Family Medical History: No Reported History Additional Family Medical History / Comment(s): Father was healthy and lived till 94 yrs. He had sinus problems Medications and Allergies Home Medications Medication Instructions Recorded Confirmed Type Aspirin 81 mg PO DAILY 01/07/16 05/27/20 History Losartan Potassium 100 mg PO DAILY 01/07/16 05/27/20 History Iroquois-3 Fatty Acids [Iroquois-3] 1,000 mg PO DAILY 01/07/16 05/27/20 History Zolpidem Tartrate [Ambien Cr] 6.25 mg PO HS 01/07/16 05/27/20 History Systane Balance 1 drop BOTH EYES BID 05/14/17 05/27/20 History Calcium Carbonate/Vitamin D3 1 tab PO DAILY 06/04/19 05/27/20 History [Calcium 500-Vit D3 200 Tablet] Cholecalciferol [Vitamin D3 (25 1,000 unit PO DAILY 06/04/19 05/27/20 History Mcg = 1000 Iu)] Cranberry Fruit Extract [Cranberry] 200 mg PO DAILY 06/04/19 05/27/20 History Grapeseed 200mg 200 mg PO HS 06/04/19 05/27/20 History Magnesium Citrate 125 mg PO DAILY 06/04/19 05/27/20 History Multivitamins, Thera [Multivitamin 1 tab PO DAILY 06/04/19 05/27/20 History (formulary)] Vit C/E/Zn/Coppr/Lutein/Zeaxan 1 cap PO HS 06/04/19 05/27/20 History [Preservision Areds 2 Softgel] Vitamin E (Dl,Tocopheryl Acet) 400 unit PO DAILY 06/04/19 05/27/20 History [Vitamin E] Bimatoprost [Lumigan .01% Ophth 1 drop BOTH EYES HS 05/05/20 05/27/20 History Soln] Vitamin B Complex 1 cap PO DAILY 05/05/20 05/27/20 History Famotidine [Pepcid] 20 mg PO DAILY #30 tab 05/09/20 05/27/20 Rx Furosemide [Lasix] 40 mg PO BID@0900,1600 #60 tab 05/09/20 05/27/20 Rx Spironolactone [Aldactone] 25 mg PO DAILY #30 tab 05/09/20 05/27/20 Rx amLODIPine [Norvasc] 2.5 mg PO DAILY 05/27/20 05/27/20 History Allergies Allergy/AdvReac Type Severity Reaction Status Date / Time Sulfa (Sulfonamide Allergy Unknown Verified 05/27/20 17:37 Antibiotics) influenza virus vaccine qs AdvReac Severe Nausea & Verified 05/27/20 17:37 [id number] (36 mos, up) Vomiting [From Fluarix Quad] Tetracyclines AdvReac Hallucinati Verified 05/27/20 17:37 ons raw eggs AdvReac Diarrhea Uncoded 05/27/20 17:37 Physical Exam Vitals: Vital Signs Temp Pulse Pulse Resp BP BP Pulse Ox 05/27/20 18:35 97.5 F L 69 16 125/67 98 05/27/20 17:25 72 18 124/70 100 05/27/20 16:12 98.2 F 155 H 22 114/77 98 Intake and Output 10/05/27/20 05/27/20 06:59 14:59 22:59 Other: Voiding Method Toilet Weight 81.647 kg General Appearance: Alert, cooperative, no distress, appears stated age. Neck HEENT: Supple, no lymphadenopathy, no thyroid enlargement, no carotid bruits. Lungs: Decreased breath some bilateral fine rhonchi no crackles possible mild expiratory wheezes. Chest Wall: Decrease expansion with deep inspiration no tenderness and no deformity was found on exam, no costochondral pain or discomfort. Heart: Regular rate and rhythm, S1, S2 positive S3 positive systolic murmur with PVCs.. Back: Symmetric, no curvature, ROM normal, no CVA tenderness. Abdomen: Soft, non-tender, bowel sounds active all four quadrants, no masses, no organomegaly. Extremities: Extremities normal, atraumatic, no cyanosis positive edema Pulses: 2+ and symmetric. Skin: Skin color, texture, tugor normal, no rashes or lesions. Neurologic: Alert oriented x3 cranial nerves II through XII intact, no motor deficit, no abnormal balance or gait. Results CBC & Chem 7: 05/28/20 04:39 05/28/20 04:39 Labs: Abnormal Lab Results - Last 24 Hours (Table) 05/27/20 05/27/20 Range/Units 16:51 16:51 APTT 20.0 L (22.0-30.0) sec Sodium 132 L (137-145) mmol/L BUN 45 H (7-17) mg/dL Creatinine 1.49 H (0.52-1.04) mg/dL Glucose 150 H (74-99) mg/dL Thrombosis Risk Factor Assmnt - DVT/VTE Prophylaxis DVT/VTE Prophylaxis: Pharmacologic Prophylaxis ordered, Mechanical Prophylaxis ordered - Choose All That Apply Any of the Below Risk Factors Present?: Yes Each Factor Represents 1 point: Obesity (BMI >25) Other Risk Factors: Yes Each Risk Factor Represents 3 Points: Age 75 years or older Other congenital or acquired thrombophilia - If yes, enter type in comment: No Thrombosis Risk Factor Assessment Total Risk Factor Score: 4 Thrombosis Risk Factor Assessment Level: Moderate Risk Assessment and Plan Assessment: 1 acute arrhythmia with nonsustained A. fib: Patient was converted to sinus rhythm on adenosine agent will be kept on smaller dose of beta kike at this point will be seen cardiology watch her pulse monitored through the night if any worsening symptoms might need an advanced aggressive management for A. fib otherwise this is still can be PVCs which can benefit from adding smaller dose of beta kike. 2 congestive heart failure: With mild exacerbation mostly diastolic patient was treated last time with losartan furosemide and spironolactone and continue medication will add smaller dose of beta kike. To my knowledge patient had mild bradycardia last time still be seeing cardiology review her echocardiogram from last time. 3 hypertension: Continue patient on losartan and amlodipine. 4 hyperlipidemia: On diet control she is off statin completely. 5 stage II chronic kidney disease: With GFR running between 25 and 40 continue hydration watch her kidney function with diuretics. 6 history of deep venous thrombosis: Patient is off anticoagulation completely no further recurrent episode and for her anticoagulation management if this is proven to be A. fib patient might benefit from being on Eliquis on the long run. 7 hyperglycemia: On diet control. 8 GI prophylaxis: Continue patient on Pepcid. 9 DVT prophylaxis: Continue heparin subcutaneous along with Venodyne boots for now. 10 possible angina: Clear currently her CK with troponin was negative repeat another EKG and CK through the night if any abnormality would be seen cardiology and discuss intervention if needed. 11 CODE STATUS: Full code. Admit patient to observation status for 1-2 nights.
--- NOTE | 2020-05-28 09:52 | P.PN ---
Subjective Progress Note Date: 05/28/20 Principal diagnosis: A. fib with RVR, tachycardia, angina chest pain, congestive heart failure w 60-year-old female one of Dr. Khan patient was seen 3 weeks ago for exacerbation of systolic congestive heart failure who is known to have history of DVT, hypertension, hyperlipidemia and mild diastolic heart failure on an echocardiogram who was post to see Dr. Gaona cardiology in his office in the meanwhile remain on current diuretics. Patient apparently had some help with her neighbor who went shopping for her on 05/27/2020 as she is putting her shopping back patient developed to have mild tachycardia was more shaky tiredness fatigue have mild chest tightness and discomfort she had A. fib bit showing on the screen pulse rate running 124 and as time goes by patient become more symptomatic with pressure and discomfort pulse rate and been climbing 136 and further 154 she ended up calling her neighbor and decided to come to the emergency department at [facility] without having to, by EMS. At the time was seen she was tachycardic with PVCs with? Of A. fib 1 dose of adenosine patient converted and become in the 70s continue to have quite bed shakiness discomfort and shortness of breath patient was hospitalized for the above problem. 05/28: Patient pulse rate has been good through the night with no A. fib no tachycardia metoprolol was added patient is waiting see cardiology today to my surprise her troponin ended up coming up patient will be kept in the hospital repeat another troponin discuss the possibility of intervention or at least stress test if needed. Objective - Vital Signs Vital signs: Vital Signs Temp 97.8 F 05/28/20 03:00 Pulse 71 05/28/20 03:00 Resp 18 05/28/20 03:00 BP 116/68 05/28/20 03:00 Pulse Ox 96 05/28/20 03:00 Intake & Output 05/27/20 05/28/20 05/28/20 18:59 06:59 18:59 Intake Total 180 Balance 180 Weight 81.647 kg Intake: Oral 180 Other: Voiding Method Toilet Toilet # Voids 2 - Exam Review of Systems CONSTITUTIONAL: Well-developed no acute respiratory distress. EYES: No icterus sclerae, no conjunctivitis. EARS, NOSE, MOUTH, THROAT, and FACE: No sore throat, lymphadenopathy, carotid bruits or deformity. RESPIRATORY: Positive shortness of breath no cough or wheezes. CARDIOVASCULAR: Positive palpitation positive PND and orthopnea question of angina as well. GASTROINTESTINAL: No Abd pain, Nausea or vomiting, no Diarrhea or constipation, No GI Bleed, no distention or masses. GENITOURINARY: Negative for Hematuria or UTI, no kidney stones. INTEGUMENT/BREAST: Negative for any muscular injury with mild osteoarthritis.. HEMATOLOGIC/LYMPHATIC: Negative for bleed or purpura. MUSCULOSKELTAL: Negative for Myalgia or arthralgia. NEURLOGICAL: No LOC, Sz or syncope, blurred vision dizziness or abnormality.. BEHAVIORAL/PSYCH: Negative. ENDOCRINE: Negative. Physical Exam Vitals: Vital Signs Temp Pulse Pulse Resp BP BP Pulse Ox 05/27/20 18:35 97.5 F L 69 16 125/67 98 05/27/20 17:25 72 18 124/70 100 05/27/20 16:12 98.2 F 155 H 22 114/77 98 Intake and Output 05/27/20 05/27/20 05/27/20 06:59 14:59 22:59 Other: Voiding Method Toilet Weight 81.647 kg General Appearance: Alert, cooperative, no distress, appears stated age. Neck HEENT: Supple, no lymphadenopathy, no thyroid enlargement, no carotid bruits. Lungs: Decreased breath some bilateral fine rhonchi no crackles possible mild expiratory wheezes. Chest Wall: Decrease expansion with deep inspiration no tenderness and no deformity was found on exam, no costochondral pain or discomfort. Heart: Regular rate and rhythm, S1, S2 positive S3 positive systolic murmur with PVCs.. Back: Symmetric, no curvature, ROM normal, no CVA tenderness. Abdomen: Soft, non-tender, bowel sounds active all four quadrants, no masses, no organomegaly. Extremities: Extremities normal, atraumatic, no cyanosis positive edema Pulses: 2+ and symmetric. Skin: Skin color, texture, tugor normal, no rashes or lesions. Neurologic: Alert oriented x3 cranial nerves II through XII intact, no motor deficit, no abnormal balance or gait. - Labs CBC & Chem 7: 05/28/20 04:39 05/28/20 04:39 Labs: Abnormal Lab Results - Last 24 Hours (Table) 05/27/20 05/27/20 05/27/20 Range/Units 16:51 16:51 23:35 APTT 20.0 L (22.0-30.0) sec Sodium 132 L (137-145) mmol/L BUN 45 H (7-17) mg/dL Creatinine 1.49 H (0.52-1.04) mg/dL Glucose 150 H (74-99) mg/dL Troponin I 0.057 H* (0.000-0.034) ng/mL 05/28/20 05/28/20 Range/Units 04:39 04:39 APTT (22.0-30.0) sec Sodium 135 L (137-145) mmol/L BUN 38 H (7-17) mg/dL Creatinine 1.28 H (0.52-1.04) mg/dL Glucose 111 H (74-99) mg/dL Troponin I 0.043 H* (0.000-0.034) ng/mL Assessment and Plan Assessment: 1 acute arrhythmia with nonsustained A. fib: Patient was converted to sinus rhythm on adenosine agent will be kept on smaller dose of beta kike at this point will be seen cardiology watch her pulse monitored through the night if any worsening symptoms might need an advanced aggressive management for A. fib otherwise this is still can be PVCs which can benefit from adding smaller dose of beta kike. 2 congestive heart failure: With mild exacerbation mostly diastolic patient was treated last time with losartan furosemide and spironolactone and continue medication will add smaller dose of beta kike. To my knowledge patient had mild bradycardia last time still be seeing cardiology review her echocardiogram from last time. 3 elevated troponin with possible non-ST PR: Continue to watch troponin cardiology to see patient might need to go for either intervention or stress test. 4 hyperlipidemia: On diet control she is off statin completely. 5 stage II chronic kidney disease: With GFR running between 25 and 40 continue hydration watch her kidney function with diuretics. 6 history of deep venous thrombosis: Patient is off anticoagulation completely no further recurrent episode and for her anticoagulation management if this is proven to be A. fib patient might benefit from being on Eliquis on the long run. 7 hyperglycemia: On diet control. 8 GI prophylaxis: Continue patient on Pepcid. 9 DVT prophylaxis: Continue heparin subcutaneous along with Venodyne boots for n ow. 10 phypertension: Continue patient on losartan and amlodipine.
--- NOTE | 2020-05-28 15:50 | P.CRDCN ---
History of Present Illness Consult date: 05/28/20 History of present illness: This is a 89-year-old female with history of hypertension, hyperlipidemia, mixed macro mitral valve disease with moderate mitral regurgitationwas admitted to the hospital in April with complaints of increasing shortness of breath and evidence of CHF. She was treated aggressively with diuretics and was sent home on Lasix and also Aldactone. Patient has been feeling dizziness and lightheadedness This time, patient is admitted to the hospital with complaints of palpitationsand was noted to be in supplement, tachycardia.Patient subseq uently converted to sinus rhythm. She seemed to be still complain of some mild dizziness. Her creatinine was slightly high. The dose of the Lasix was cut back Her troponin values are mildly elevated. Clinically patient has a pansystolic murmur consistent with severe mitral regurgitation. Review of the echocardiogram is also sized to severe mitral regurgitation with possible ruptured chordae with partial flail of the leaflet involving the anterior leaflet. We'll continue current medical therapy. May proceed with the LISA examination and possibly cardiac catheterization. Troponins are mildly elevated which could be secondary to SVT, though underlying ischemic heart disease cannot be excluded. Further examination depend upon the clinical course. However given her patient's age, conservative approach is also to be considered Review of Systems as per the chart. Complaints of shortness of breath and palpitations and dizziness Past Medical History Past Medical History: Heart Failure, Deep Vein Thrombosis (DVT), Eye Disorder, Hyperlipidemia, Hypertension, Osteoarthritis (OA), Syncope, Vascular Disorder Additional Past Medical History / Comment(s): Diverticulosis/diverticulitis, DVT R leg post bowel resection, DVT L leg as a teen, arthritis in hands/legs and feet, varicosities bilateral legs, glaucoma/macular degeneration bilaterally, UTIs, not currently on RX for cholesterol or htn. History of Any Multi-Drug Resistant Organisms: None Reported Past Surgical History: Adenoidectomy, Appendectomy, Bowel Resection, Cholecystectomy, Hysterectomy, Orthopedic Surgery, Tonsillectomy Additional Past Surgical History / Comment(s): Bowel resection for diverticular disease, colonoscopies, D&C, left leg vein stripping, left wrist ligament surgery, bilateral cataracts/lens implants Past Anesthesia/Blood Transfusion Reactions: No Reported Reaction Additional Past Anesthesia/Blood Transfusion Reaction / Comment(s): Pt received blood associated with childbirth without reaction. Past Psychological History: No Psychological Hx Reported Additional Psychological History / Comment(s): Pt resides alone in a condo. She uses no assistive device. She drives. Smoking Status: Never smoker Past Alcohol Use History: None Reported Past Drug Use History: None Reported - Past Family History Brother(s) Family Medical History: Cancer Additional Family Medical History / Comment(s): skin cancer Sister(s) Family Medical History: Cancer Additional Family Medical History / Comment(s): Uterine cancer Mother Family Medical History: Coronary Artery Disease (CAD), Vascular Disorder Additional Family Medical History / Comment(s): Mother lived to be 85 yrs old. She had varicosities Father Family Medical History: No Reported History Additional Family Medical History / Comment(s): Father was healthy and lived till 94 yrs. He had sinus problems Medications and Allergies Home Medications Medication Instructions Recorded Confirmed Type Aspirin 81 mg PO DAILY 01/07/16 05/27/20 History Losartan Potassium 100 mg PO DAILY 01/07/16 05/27/20 History [place]-3 Fatty Acids [[place]-3] 1,000 mg PO DAILY 01/07/16 05/27/20 History Zolpidem Tartrate [Ambien Cr] 6.25 mg PO HS 01/07/16 05/27/20 History Systane Balance 1 drop BOTH EYES BID 05/14/17 05/27/20 History Calcium Carbonate/Vitamin D3 1 tab PO DAILY 06/04/19 05/27/20 History [Calcium 500-Vit D3 200 Tablet] Cholecalciferol [Vitamin D3 (25 1,000 unit PO DAILY 06/04/19 05/27/20 History Mcg = 1000 Iu)] Cranberry Fruit Extract [Cranberry] 200 mg PO DAILY 06/04/19 05/27/20 History Grapeseed 200mg 200 mg PO HS 06/04/19 05/27/20 History Magnesium Citrate 125 mg PO DAILY 06/04/19 05/27/20 History Multivitamins, Thera [Multivitamin 1 tab PO DAILY 06/04/19 05/27/20 History (formulary)] Vit C/E/Zn/Coppr/Lutein/Zeaxan 1 cap PO HS 06/04/19 05/27/20 History [Preservision Areds 2 Softgel] Vitamin E (Dl,Tocopheryl Acet) 400 unit PO DAILY 06/04/19 05/27/20 History [Vitamin E] Bimatoprost [Lumigan .01% Ophth 1 drop BOTH EYES HS 05/05/20 05/27/20 History Soln] Vitamin B Complex 1 cap PO DAILY 05/05/20 05/27/20 History Famotidine [Pepcid] 20 mg PO DAILY #30 tab 05/09/20 05/27/20 Rx Furosemide [Lasix] 40 mg PO BID@0900,1600 #60 tab 05/09/20 05/27/20 Rx Spironolactone [Aldactone] 25 mg PO DAILY #30 tab 05/09/20 05/27/20 Rx amLODIPine [Norvasc] 2.5 mg PO DAILY 05/27/20 05/27/20 History Allergies Allergy/AdvReac Type Severity Reaction Status Date / Time Sulfa (Sulfonamide Allergy Unknown Verified 05/27/20 17:37 Antibiotics) influenza virus vaccine qs AdvReac Severe Nausea & Verified 05/27/20 17:37 [id number] (36 mos, up) Vomiting [From Fluarix Quad] Tetracyclines AdvReac Hallucinati Verified 05/27/20 17:37 ons raw eggs AdvReac Diarrhea Uncoded 05/27/20 17:37 Physical Exam Vitals: Vital Signs Temp Pulse Pulse Pulse Pulse Pulse Resp 05/28/20 12:00 76 79 67 05/28/20 09:00 97.5 F L 70 16 05/28/20 03:00 97.8 F 71 18 05/27/20 21:00 97.6 F 71 20 05/27/20 18:35 97.5 F L 69 16 05/27/20 17:25 72 18 05/27/20 16:12 98.2 F 155 H 22 BP BP BP BP BP Pulse Ox 05/28/20 12:00 144/79 122/73 150/76 05/28/20 09:00 163/72 97 05/28/20 03:00 116/68 96 05/27/20 21:00 117/62 97 05/27/20 18:35 125/67 98 05/27/20 17:25 124/70 100 05/27/20 16:12 114/77 98 Intake and Output 05/28/20 05/28/20 05/28/20 06:59 14:59 22:59 Intake Total 30 Balance 30 Intake: Oral 30 Other: Voiding Method Toilet Toilet # Voids 2 1 GENERAL EXAM: Patient is alert and oriented and doesn't appear to be in any acute distress HEENT: Normocephalic. Normal reaction of pupils, equal size, normal range of extraocular motion. No erythema or exudates in the throat. NECK: No masses, no nuchal rigidity. CHEST: No chest wall deformity. LUNGS: [Equal air entry with no crackles or wheeze.] HEART: S1 and S2 heard. Holosystolic murmur at the apex ABDOMEN: No hepatosplenomegaly, normal bowel sounds, no guarding or rigidity. SKIN: No rashes CENTRAL NERVOUS SYSTEM: No focal deficits. EXTREMITIES: . No Edema Results 05/28/20 04:39 05/28/20 04:39 Cardiac Enzymes 05/27/20 05/27/20 05/27/20 Range/Units 16:51 16:51 19:31 AST 31 (14-36) U/L Troponin I 0.013 0.032 (0.000-0.034) ng/mL 05/27/20 05/28/20 05/28/20 Range/Units 23:35 04:39 04:39 AST 23 (14-36) U/L Troponin I 0.057 H* 0.043 H* (0.000-0.034) ng/mL Coagulation 05/27/20 Range/Units 16:51 PT 9.6 (9.0-12.0) sec APTT 20.0 L (22.0-30.0) sec CBC 05/27/20 05/28/20 Range/Units 16:51 04:39 WBC 7.7 5.8 (3.8-10.6) k/uL RBC 4.33 4.02 (3.80-5.40) m/uL Hgb 13.3 12.4 (11.4-16.0) gm/dL Hct 41.8 39.0 (34.0-46.0) % Plt Count 178 168 (150-450) k/uL Comprehensive Metabolic Panel 05/27/20 05/28/20 Range/Units 16:51 04:39 Sodium 132 L 135 L (137-145) mmol/L Potassium 4.3 4.3 (3.5-5.1) mmol/L Chloride 98 101 (98-107) mmol/L Carbon Dioxide 24 27 (22-30) mmol/L BUN 45 H 38 H (7-17) mg/dL Creatinine 1.49 H 1.28 H (0.52-1.04) mg/dL Glucose 150 H 111 H (74-99) mg/dL Calcium 10.2 9.5 (8.4-10.2) mg/dL AST 31 23 (14-36) U/L ALT 18 15 (4-34) U/L Alkaline Phosphatase 59 51 (38-126) U/L Total Protein 7.5 6.4 (6.3-8.2) g/dL Albumin 4.5 3.7 (3.5-5.0) g/dL Current Medications Generic Name Dose Route Start Last Admin Trade Name Freq PRN Reason Stop Dose Admin Amlodipine Besylate 2.5 mg 05/28/20 09:00 05/28/20 09:39 Amlodipine 2.5 Mg Tab PO 2.5 mg DAILY ANGEL Administration Aspirin 81 mg 05/28/20 09:00 05/28/20 09:38 Aspirin 81 Mg PO 81 mg DAILY ANGEL Administration Calcium Carbonate 1 each 05/28/20 09:00 05/28/20 09:37 Calcium Carb-Vit D 500mg-200un 1 Each Tab PO 1 each DAILY ANGEL Administration Cholecalciferol 1,000 unit 05/28/20 09:00 05/28/20 09:37 Cholecalciferol 1,000 Unit Tab PO 1,000 unit DAILY ANGEL Administration Famotidine 20 mg 05/28/20 09:00 05/28/20 09:37 Famotidine 20 Mg Tab PO 20 mg DAILY ANGEL Administration Furosemide 20 mg 05/28/20 16:00 Furosemide 20 Mg Tab PO BID@0900,1600 ANGEL Heparin Sodium (Porcine) 5,000 unit 05/28/20 09:00 05/28/20 09:36 Heparin Sodium,Porcine 5,000 Unit/Ml 1 Ml Vial SQ 5,000 unit Q12HR ANGEL Administration Latanoprost 1 drops 05/28/20 21:00 Latanoprost 0.005% Ophth Drops 2.5 Ml Btl BOTH EYES HS ANGEL Losartan Potassium 100 mg 05/28/20 09:00 05/28/20 09:36 Losartan 50 Mg Tab PO 100 mg DAILY ANGEL Administration Metoprolol Succinate 12.5 mg 05/28/20 21:00 Metoprolol Succinate (Er) 25 Mg Tab.Er.24h PO BID ANGEL Multivitamins 1 each 05/28/20 09:00 05/28/20 09:37 Multivitamins, Thera 1 Each Tab PO 1 each DAILY ANGEL Administration Multivitamins/Minerals 1 each 05/28/20 21:00 Vit A,C & A-Uvscfx-Ravzdwoj 1 Each Tab PO HS ANGEL Naloxone HCl 0.2 mg 05/27/20 17:47 Naloxone 0.4 Mg/Ml 1 Ml Vial IV Q2M PRN Opioid Reversal Spironolactone 12.5 mg 05/29/20 09:00 Spironolactone 25 Mg Tab PO DAILY ANGEL Zolpidem Tartrate 5 mg 05/28/20 21:00 Zolpidem 5 Mg Tab PO HS ANGEL Intake and Output 05/28/20 05/28/20 05/28/20 06:59 14:59 22:59 Intake Total 30 Balance 30 Intake: Oral 30 Other: Voiding Method Toilet Toilet # Voids 2 1 05/28/20 04:39 05/28/20 04:39 EKG Interpretations (text) initial EKG showed SVT Assessment and Plan (1) Severe mitral regurgitation Current Visit: Yes Status: Acute Code(s): I34.0 - NONRHEUMATIC MITRAL ( VALVE) INSUFFICIENCY SNOMED Code(s): 386381696 (2) SVT (supraventricular tachycardia) Current Visit: Yes Status: Acute Code(s): I47.1 - SUPRAVENTRICULAR TACHYCARDIA SNOMED Code(s): 7705144 (3) Diastolic CHF Current Visit: Yes Status: Acute Code(s): I50.30 - UNSPECIFIED DIASTOLIC (CONGESTIVE) HEART FAILURE SNOMED Code(s): 057404120 (4) Dizziness Current Visit: Yes Status: Acute Code(s): R42 - DIZZINESS AND GIDDINESS SNOMED Code(s): 163052041 Plan: continue current medical therapy. Consider LISA examination. Possible cardiac catheterization. Further recommendations depend upon clinical course
[2020-05-28] MEDS: FUROSEMIDE 20 MG TAB PO SCH (16:21)
[2020-05-28] MEDS: METOPROLOL SUCCINATE (ER) 25 MG TAB.ER.24H PO SCH (21:40)
[2020-05-28] MEDS: LATANOPROST 0.005% OPHTH DROPS 2.5 ML BTL BOTH EYES SCH (21:41)
[2020-05-28] MEDS: VIT A,C & E-LUTEIN-MINERALS 1 EACH TAB PO SCH (21:41)
[2020-05-28] MEDS: ZOLPIDEM 5 MG TAB PO SCH (21:41)
[2020-05-29] MEDS ORDERED: SPIRONOLACTONE 25 MG TAB PO SCH (09:00)
[2020-05-29] MEDS: MULTIVITAMINS, THERA 1 EACH TAB PO SCH (09:04)
[2020-05-29] MEDS: HEPARIN SODIUM,PORCINE 5,000 UNIT/ML 1 ML VIAL SQ SCH ×2 (09:04→20:33)
[2020-05-29] MEDS: CALCIUM CARB-VIT D 500MG-200UN 1 EACH TAB PO SCH (09:04)
[2020-05-29] MEDS: ASPIRIN 81 MG PO SCH (09:04)
[2020-05-29] MEDS: LOSARTAN 50 MG TAB PO SCH (09:04)
[2020-05-29] MEDS: METOPROLOL SUCCINATE (ER) 25 MG TAB.ER.24H PO SCH ×2 (09:05→20:32)
[2020-05-29] MEDS: CHOLECALCIFEROL 1,000 UNIT TAB PO SCH (09:05)
[2020-05-29] MEDS: FUROSEMIDE 20 MG TAB PO SCH ×2 (09:05→16:42)
[2020-05-29] MEDS: FAMOTIDINE 20 MG TAB PO SCH (09:05)
[2020-05-29] MEDS: amLODIPine 2.5 MG TAB PO SCH (09:42)
--- NOTE | 2020-05-29 10:16 | P.PN ---
Subjective Progress Note Date: 05/29/20 Principal diagnosis: A. fib with RVR, tachycardia, angina chest pain, congestive heart failure, severe mitral regurgitation with possible flail mitral valve. Non-ST NC 60-year-old female one of Dr. Khan patient was seen 3 weeks ago for exacerbation of systolic congestive heart failure who is known to have history of DVT, hypertension, hyperlipidemia and mild diastolic heart failure on an echocardiogram who was post to see Dr. Gaona cardiology in his office in the meanwhile remain on current diuretics. Patient apparently had some help with her neighbor who went shopping for her on 05/27/2020 as she is putting her shopping back patient developed to have mild tachycardia was more shaky tiredness fatigue have mild chest tightness and discomfort she had A. fib bit showing on the screen pulse rate running 124 and as time goes by patient become more symptomatic with pressure and discomfort pulse rate and been climbing 136 and further 154 she ended up calling her neighbor and decided to come to the emergency department at [facility] without having to, by EMS. At the time was seen she was tachycardic with PVCs with? Of A. fib 1 dose of adenosine patient converted and become in the 70s continue to have quite bed shakiness discomfort and shortness of breath patient was hospitalized for the above problem. 05/28: Patient pulse rate has been good through the night with no A. fib no tachycardia metoprolol was added patient is waiting see cardiology today to my surprise her troponin ended up coming up patient will be kept in the hospital repeat another troponin discuss the possibility of intervention or at least stress test if needed. 05/29: Patient is doing better no further tachycardia, was seen cardiology his going for transesophageal echocardiogram tomorrow if found to have a flail mitral valve patient will go for heart cath otherwise might benefit from stress test or medical management at the point. Objective - Vital Signs Vital signs: Vital Signs Temp 97.6 F 05/29/20 09:00 Pulse 68 05/29/20 09:00 Resp 16 05/29/20 09:00 BP 131/63 05/29/20 09:00 Pulse Ox 96 05/29/20 09:00 Intake & Output 05/28/20 05/29/20 05/29/20 18:59 06:59 18:59 Intake Total 570 126 Balance 570 126 Intake: Oral 570 126 Other: Voiding Method Toilet Toilet # Voids 1 1 - Exam Review of Systems CONSTITUTIONAL: Well-developed no acute respiratory distress. EYES: No icterus sclerae, no conjunctivitis. EARS, NOSE, MOUTH, THROAT, and FACE: No sore throat, lymphadenopathy, carotid bruits or deformity. RESPIRATORY: Positive shortness of breath no cough or wheezes. CARDIOVASCULAR: Positive palpitation positive PND and orthopnea question of angina as well. GASTROINTESTINAL: No Abd pain, Nausea or vomiting, no Diarrhea or constipation, No GI Bleed, no distention or masses. GENITOURINARY: Negative for Hematuria or UTI, no kidney stones. INTEGUMENT/BREAST: Negative for any muscular injury with mild osteoarthritis.. HEMATOLOGIC/LYMPHATIC: Negative for bleed or purpura. MUSCULOSKELTAL: Negative for Myalgia or arthralgia. NEURLOGICAL: No LOC, Sz or syncope, blurred vision dizziness or abnormality.. BEHAVIORAL/PSYCH: Negative. ENDOCRINE: Negative. Physical Exam Vitals: Vital Signs Temp Pulse Pulse Resp BP BP Pulse Ox 05/27/20 18:35 97.5 F L 69 16 125/67 98 05/27/20 17:25 72 18 124/70 100 05/27/20 16:12 98.2 F 155 H 22 114/77 98 Intake and Output 05/27/20 05/27/20 05/27/20 06:59 14:59 22:59 Other: Voiding Method Toilet Weight 81.647 kg General Appearance: Alert, cooperative, no distress, appears stated age. Neck HEENT: Supple, no lymphadenopathy, no thyroid enlargement, no carotid bruits. Lungs: Decreased breath some bilateral fine rhonchi no crackles possible mild expiratory wheezes. Chest Wall: Decrease expansion with deep inspiration no tenderness and no deformity was found on exam, no costochondral pain or discomfort. Heart: Regular rate and rhythm, S1, S2 positive S3 positive systolic murmur with PVCs.. Back: Symmetric, no curvature, ROM normal, no CVA tenderness. Abdomen: Soft, non-tender, bowel sounds active all four quadrants, no masses, no organomegaly. Extremities: Extremities normal, atraumatic, no cyanosis positive edema Pulses: 2+ and symmetric. Skin: Skin color, texture, tugor normal, no rashes or lesions. Neurologic: Alert oriented x3 cranial nerves II through XII intact, no motor deficit, no abnormal balance or gait. - Labs CBC & Chem 7: 05/28/20 04:39 05/28/20 04:39 Assessment and Plan Assessment: 1 acute arrhythmia with nonsustained A. fib: Patient was converted to sinus rhythm on adenosine agent will be kept on smaller dose of beta kike at this point will be seen cardiology watch her pulse monitored through the night if any worsening symptoms might need an advanced aggressive management for A. fib otherwise this is still can be PVCs which can benefit from adding smaller dose of beta kike. 2 congestive heart failure: With mild exacerbation mostly diastolic patient was treated last time with losartan furosemide and spironolactone and continue medication will add smaller dose of beta kike. To my knowledge patient had mild bradycardia last time still be seeing cardiology review her echocardiogram from last time. 3 elevated troponin with possible non-ST NC: Continue to watch troponin cardiology to see patient might need to go for either intervention or stress test. 4 severe mitral regurgitation: Patient is going for transesophageal echocardiogram if positive for flail mitral valve will need heart cath and further management. 5 hyperlipidemia: On diet control she is off statin completely. 6 history of deep venous thrombosis: Patient is off anticoagulation completely no further recurrent episode and for her anticoagulation management if this is proven to be A. fib patient might benefit from being on Eliquis on the long run. 7 hyperglycemia: On diet control. 8 stage II chronic kidney disease: With GFR running between 25 and 40 continue hydration watch her kidney function with diuretics. 9 GI prophylaxis: Continue patient on Pepcid. Discharge planning: All depend on the finding from the LISA tomorrow.
--- NOTE | 2020-05-29 12:11 | P.PN ---
Subjective This is a pleasant 89-year-old female past medical history significant for hypertension, dyslipidemia, valvular heart disease and diastolic heart failure. She follows in the office with Dr. Parmar. She is seen and examined sitting up in bed in no acute distress. She states she is feeling better since yesterday but not entirely back to baseline. She did have some orthostatic changes yesterday and again today. Current standing blood pressure is 83/53 sitting is 113/57. She continues to have dizziness with position changes and a full sensation in her head. She denies chest pain, shortness of breath or palpitations. Laboratory data reviewed, CBC unremarkable, sodium 135, potassium 4.3, creatinine 1.28. Currently maintained on amlodipine 2.5 mg daily, aspirin 81 mg daily, Lasix 20 mg twice a day, losartan 100 mg daily, Toprol 12.5 mg twice a day. GENERAL: Well-appearing, well-nourished and in no acute distress. NECK: Supple without JVD or thyromegaly. LUNGS: Breath sounds clear to auscultation bilaterally. Respiration equal and unlabored. No wheezes, rales or rhonchi. HEART: Regular rate and rhythm with holosystolic murmur at the apex, no rubs or gallops. S1 and S2 heard. EXTREMITIES: Normal range of motion, no edema. No clubbing or cyanosis. Peripheral pulses intact. ASSESSMENT Severe mitral regurgitation Orthostatic hypotension SVT on admission status post adenosine Chronic diastolic heart failure History of hypertension Dyslipidemia PLAN Discontinue Aldactone. Check orthostatic vital signs every shift. Transthoracic echocardiogram reviewed by Dr. Lomeli and he is recommending LISA tomorrow with Dr. Parmar. Further recommendations to follow based upon clinical course. Nurse Practitioner note has been reviewed, I agree with a documented findings and plan of care. Patient was seen and examined. Objective - Vital Signs Vital signs: Vital Signs Temp 97.6 F 05/29/20 09:00 Pulse 64 05/29/20 10:58 Resp 16 05/29/20 09:00 BP 102/56 05/29/20 10:58 Pulse Ox 95 05/29/20 10:54 Intake & Output 05/28/20 05/29/20 05/29/20 18:59 06:59 18:59 Intake Total 570 126 Balance 570 126 Intake: Oral 570 126 Other: Voiding Method Toilet Toilet # Voids 1 1 - Labs CBC & Chem 7: 05/28/20 04:39 05/28/20 04:39
[2020-05-29] MEDS: ZOLPIDEM 5 MG TAB PO SCH (20:32)
[2020-05-29] MEDS: LATANOPROST 0.005% OPHTH DROPS 2.5 ML BTL BOTH EYES SCH (20:32)
[2020-05-29] MEDS: VIT A,C & E-LUTEIN-MINERALS 1 EACH TAB PO SCH (20:33)
[2020-05-30] MEDS: BENZOCAINE SPRAY 1 CAN TOPICAL ONE ×2 (11:29→11:41)
[2020-05-30] MEDS ORDERED: SODIUM CHLORIDE 0.9% 500 ML 500 ML IV ONE (11:30)
[2020-05-30] MEDS ORDERED: fentaNYL (PF) 50 MCG/ML 2 ML AMP IVP ONE (11:44)
[2020-05-30] MEDS ORDERED: MIDAZOLAM 2 MG/2 ML VIAL IVP ONE (11:44)
--- NOTE | 2020-05-30 12:51 | ECHOT ---
TRANSESOPHAGEAL ECHOCARDIOGRAM DATE OF SERVICE: May 30, 2020 PERFORMING PHYSICIAN: Mo Parmar MD. PROCEDURE PERFORMED: Transesophageal echocardiogram. INDICATION: This is an 89-year-old female patient with history of mitral valve disease, was admitted to the hospital with supraventricular tachycardia and also she was found to be in heart failure. She is known to have mitral regurgitation. The LISA on surface echo showed what seems to be at least severe mitral regurgitation, and because of that a transesophageal echocardiogram was advised. COMPLICATION: None. LEVEL OF SEDATION: Moderate with sedation length of 15 minutes. PROCEDURE DESCRIPTION: After obtaining an informed consent, the patient was brought to the transesophageal echocardiogram room. A pulse oximetry and heart rate monitors were attached to the patient. Subsequently, the patient was turned into left lateral position. A bite guard was placed. The patient's throat was numbed using lidocaine. Subsequently, the transesophageal echocardiogram was advanced through the bite guard to the mid esophageal where a 2D echocardiogram images as well as color Doppler images of various cardiac structures were obtained. Particular attention was made to the mitral valve apparatus. The echocardiogram was performed using 2D echo, color Doppler, pulse Doppler, and continuous wave Dopplers. FINDINGS: The left ventricular dimension and systolic function appeared to be normal. The ejection fraction appeared to be in the range of 55%. The right ventricle appeared to be of normal size and function. The left atrium appeared to be dilated. The left atrial appendage appeared to be free from any thrombus. The interatrial septum appeared to be intact. The aortic valve is trileaflet valve without stenosis with mild regurgitation. The mitral valve seems to be isolating with evidence of flail of the anterior mitral leaflet and severe eccentric/posterior mitral regurgitation seen. There was reversal flow in the pulmonic vein. The tricuspid valve showed evidence of moderate tricuspid regurgitation. The pulmonic valve showed evidence of mild pulmonic insufficiency as well. CONCLUSION: 1. Flailing of the anterior mitral leaflet with evidence of torrential mitral regurgitation with eccentric posteriorly directed jet. 2. At least moderate tricuspid regurgitation was seen. 3. Trileaflet aortic valve without stenosis with mild insufficiency. 4. Mild pulmonic insufficiency seen. 5. Normal left ventricular dimension and systolic function. The ejection fraction is 55%. 6. Normal right ventricular dimension and systolic function. 7. Moderate left atrial dilatation. 8. Intact interatrial septum. 9. No evidence of pericardial effusion. MMODL / IJN: [id number] /
[2020-05-30] MEDS: FAMOTIDINE 20 MG TAB PO SCH (13:59)
[2020-05-30] MEDS: METOPROLOL SUCCINATE (ER) 25 MG TAB.ER.24H PO SCH ×2 (13:59→20:51)
[2020-05-30] MEDS: CALCIUM CARB-VIT D 500MG-200UN 1 EACH TAB PO SCH (13:59)
[2020-05-30] MEDS: ASPIRIN 81 MG PO SCH (13:59)
[2020-05-30] MEDS: LOSARTAN 50 MG TAB PO SCH (13:59)
[2020-05-30] MEDS: MULTIVITAMINS, THERA 1 EACH TAB PO SCH (14:00)
[2020-05-30] MEDS: CHOLECALCIFEROL 1,000 UNIT TAB PO SCH (14:00)
[2020-05-30] MEDS: HEPARIN SODIUM,PORCINE 5,000 UNIT/ML 1 ML VIAL SQ SCH ×2 (14:00→20:50)
[2020-05-30] MEDS: amLODIPine 2.5 MG TAB PO SCH (14:00)
[2020-05-30] MEDS: FUROSEMIDE 20 MG TAB PO SCH ×2 (14:00→16:37)
--- NOTE | 2020-05-30 14:08 | P.PN ---
Subjective Progress Note Date: 05/30/20 HISTORY OF PRESENT ILLNESS 60-year-old female one of Dr. Khan patient was seen 3 weeks ago for exacerbation of systolic congestive heart failure who is known to have history of DVT, hypertension, hyperlipidemia and mild diastolic heart failure on an echocardiogram who was post to see Dr. Gaona cardiology in his office in the meanwhile remain on current diuretics. Patient apparently had some help with her neighbor who went shopping for her on 05/27/2020 as she is putting her sh opping back patient developed to have mild tachycardia was more shaky tiredness fatigue have mild chest tightness and discomfort she had A. fib bit showing on the screen pulse rate running 124 and as time goes by patient become more symptomatic with pressure and discomfort pulse rate and been climbing 136 and further 154 she ended up calling her neighbor and decided to come to the emergency department at [facility] without having to, by EMS. At the time was seen she was tachycardic with PVCs with? Of A. fib 1 dose of adenosine patient converted and become in the 70s continue to have quite bed shakiness discomfort and shortness of breath patient was hospitalized for the above problem. 05/28: Patient pulse rate has been good through the night with no A. fib no tachycardia metoprolol was added patient is waiting see cardiology today to my surprise her troponin ended up coming up patient will be kept in the hospital repeat another troponin discuss the possibility of intervention or at least stress test if needed. 05/29: Patient is doing better no further tachycardia, was seen cardiology his going for transesophageal echocardiogram tomorrow if found to have a flail mitral valve patient will go for heart cath otherwise might benefit from stress test or medical management at the point. 05/30: LISA was performed by Dr. Parmar which revealed flailing of the anterior mitral leaflet with evidence of torrential mitral regurgitation with eccentric posteriorly directed jet. At least moderate tricuspid regurgitation. Trileaflet aortic valve without stenosis with mild insufficiency. Mild pulmonic insufficiency. EF 55%, moderate left atrial dilatation. Intact intra-atrial septum. No pericardial effusion. Etiology plan was to perform heart catheterization and LISA was abnormal. Anticipate this will be scheduled for tomorrow. Consult will be added for cardiothoracic surgery. Patient's only complaint is feeling tired and that she wants to go home. She denies having any chest pain. environmental monitoring specialist has been a sinus rhythm. She has been afebrile, heart rate 60, blood pressure 115/67, pulse ox 96% on room air. REVIEW OF SYSTEMS CONSTITUTIONAL: Well-developed no acute respiratory distress. No fevers. EYES: No icterus sclerae, no conjunctivitis. EARS, NOSE, MOUTH, THROAT, and FACE: No sore throat, lymphadenopathy, carotid bruits or deformity. RESPIRATORY: Positive shortness of breath no cough or wheezes. CARDIOVASCULAR: Positive palpitation positive PND and orthopnea question of angina as well. GASTROINTESTINAL: No Abd pain, Nausea or vomiting, no Diarrhea or constipation, No GI Bleed, no distention or masses. GENITOURINARY: Negative for Hematuria or UTI, no kidney stones. INTEGUMENT/BREAST: Negative for any muscular injury with mild osteoarthritis.. HEMATOLOGIC/LYMPHATIC: Negative for bleed or purpura. MUSCULOSKELTAL: Negative for Myalgia or arthralgia. NEURLOGICAL: No LOC, Sz or syncope, blurred vision dizziness or abnormality.. BEHAVIORAL/PSYCH: Negative. ENDOCRINE: Negative. PHYSICAL EXAMINATION General Appearance: Alert, cooperative, no distress, appears stated age. Neck HEENT: Supple, no lymphadenopathy, no thyroid enlargement, no carotid bruits. Lungs: Decreased breath some bilateral fine rhonchi no crackles possible mild expiratory wheezes. Chest Wall: Decrease expansion with deep inspiration no tenderness and no deformity was found on exam, no costochondral pain or discomfort. Heart: Regular rate and rhythm, S1, S2 positive S3 positive systolic murmur with PVCs.. Back: Symmetric, no curvature, ROM normal, no CVA tenderness. Abdomen: Soft, non-tender, bowel sounds active all four quadrants, no masses, no organomegaly. Extremities: Extremities normal, atraumatic, no cyanosis positive edema Pulses: 2+ and symmetric. Skin: Skin color, texture, tugor normal, no rashes or lesions. Neurologic: Alert oriented x3 cranial nerves II through XII intact, no motor deficit, no abnormal balance or gait. ASSESSMENT AND PLAN 1 acute arrhythmia with SVT on admission status post adenosine, converted to sinus rhythm and maintained. Cardiology consult appreciated. LISA as above. Cardiothoracic surgery added. Anticipate cardiology will perform heart catheterization tomorrow. 2 chronic diastolic heart failure. Continue losartan furosemide and sp ironolactone. 3 elevated troponin, non-ST elevated myocardial infarction ruled out. 4 severe mitral regurgitation. C LISA as above. Cardiothoracic surgery evaluation. 5 hyperlipidemia: On diet control she is off statin completely. 6 history of deep venous thrombosis: Patient is off anticoagulation completely no further recurrent episode. 7 hyperglycemia: On diet control. 8 stage II chronic kidney disease: With GFR running between 25 and 40 continue hydration watch her kidney function with diuretics. 9 GI prophylaxis: Continue patient on Pepcid. Discharge plan: Home with [facility] Impression and plan of care have been directed as dictated by the signing physician. Franchesca Rowan nurse practitioner acting as scribe for signing physician. Objective - Vital Signs Vital signs: Vital Signs Temp 97.5 F L 05/30/20 08:19 Pulse 62 05/30/20 08:19 Resp 16 05/30/20 08:19 BP 147/66 05/30/20 08:19 Pulse Ox 97 05/30/20 08:19 Intake & Output 05/29/20 05/30/20 05/30/20 18:59 06:59 18:59 Intake Total 360 Balance 360 Intake: Oral 360 Other: Voiding Method Toilet Toilet Toilet # Voids 1 2 - Labs CBC & Chem 7: 05/28/20 04:39 05/28/20 04:39
--- NOTE | 2020-05-30 16:37 | P.GSCN ---
<David Lou - Last Filed: 05/30/20 15:53> History of Present Illness Consult date: 05/30/20 Reason for Consult: Mitral valve with flail anterior leaflet. Requesting physician: Alexys Sher History of present illness: This is an 89-year-old female who is followed by Dr. Barrie Khan on an outpatient basis. She has a past medical history significant for bilateral lower extremity DVT, hypertension, diastolic acute on chronic congestive heart failure, a recent diagnosis of moderate mitral valve regurgitation, and mild to moderate tricuspid valve regurgitation. On 05/27/2021 the patient was resting in a chair at home developed some palpitations to her chest. She was wearing a fit bit and the fit that was showing a heart rate of 154 BPM. She reports that she does get some episodes of dizziness and has been adding some pillows at night while sleeping. She denies any fever, chills, shortness of breath, chest pain or pressure, nausea, vomiting or syncope. The patient's family was also present at her bedside and reports that she had a recent admission to the hospital in April 2020 with complaints of chest pressure, shortness of breath and dizziness. During her hospitalization in April 2020 she underwent a 2-D echocardiogram which showed her to have an overall left ventricular systolic function to be normal with an ejection fraction between 60 and 65%, a severely dilated left atrium greater than 40 mL/m, mild aortic valve regurgitation, moderate mitral valve regurgitation with mild prolapse of the anterior mitral valve leaflet, mild prolapse of the posterior mitral valve leaflet, a peak gradient and mean gradient of 17.04 mmHg and 4.32 mmHg, mild to moderate tricuspid valve regurgitation, and trace to mild pulmonic valve regurgitation. Due to her palpitations she was experiencing and recent history of chest pressure and shortness of breath she called her neighbor and her neighbor brought her to the emergency department here at [facility] for further evaluation and treatment recommendations. In the emergency department a 12-lead EKG was completed which demonstrated a supraventricular tachycardia with a heart rate of 139 BPM. Subsequently, a dose of adenosine was given and the patient converted to normal sinus rhythm with heart rate in the 70s. Initial laboratory results showed a WBC count of 7.7, hemoglobin 13.3, platelets 178, sodium 132, BUN 45, creatinine 1.49, glucose 150, and her initial troponins were 0.032 and went as high as 0.057. Due to her presenting symptoms, and elevated troponins a consult was placed to cardiology. Today 05/30/2020 the patient underwent a transesophageal echocardiogram which demonstrated a flail of the anterior mitral valve leaflet with evidence of torrential mitral regurgitation with eccentric posteriorly directed jet, moderate tricuspid valve regurgitation, mild aortic valve insufficiency mild pulmonic valve insufficiency and a normal left ventricular systolic function with an ejection fraction of 55%. The findings on the transesophageal echocardiogram were discussed with the patient and her family members present at her bedside by Dr. Parmar and a consult was placed to Dr. Jose Antonio Rizvi from cardiothoracic surgery for further evaluation and treatment recommendations. Review of Systems A 14 point review of systems was completed was negative except as mentioned in the HPI. Past Medical History Past Medical History: Heart Failure, Deep Vein Thrombosis (DVT), Eye Disorder, Hyperlipidemia, Hypertension, Osteoarthritis (OA), Syncope, Vascular Disorder Additional Past Medical History / Comment(s): Diverticulosis/diverticulitis, DVT R leg post bowel resection, DVT L leg as a teen, arthritis in hands/legs and feet, varicosities bilateral legs, glaucoma/macular degeneration bilaterally, UTIs, not currently on RX for cholesterol. History of Any Multi-Drug Resistant Organisms: None Reported Past Surgical History: Adenoidectomy, Appendectomy, Bowel Resection, Cholecyst ectomy, Hysterectomy, Orthopedic Surgery, Tonsillectomy Additional Past Surgical History / Comment(s): Bowel resection for diverticular disease, colonoscopies, D&C, left leg vein stripping, left wrist ligament surgery, bilateral cataracts/lens implants Past Anesthesia/Blood Transfusion Reactions: No Reported Reaction Additional Past Anesthesia/Blood Transfusion Reaction / Comm: Pt received blood associated with childbirth without reaction. Past Psychological History: No Psychological Hx Reported Additional Psychological History / Comment(s): Pt resides alone in a condo. She uses no assistive device. She drives. Smoking Status: Never smoker Past Alcohol Use History: Rare Past Drug Use History: None Reported - Past Family History Brother(s) Family Medical History: Cancer Additional Family Medical History / Comment(s): skin cancer Sister(s) Family Medical History: Cancer Additional Family Medical History / Comment(s): Uterine cancer Mother Family Medical History: Coronary Artery Disease (CAD), Vascular Disorder Additional Family Medical History / Comment(s): Mother lived to be 85 yrs old. She had varicosities Father Family Medical History: No Reported History Additional Family Medical History / Comment(s): Father was healthy and lived till 94 yrs. He had sinus problems Medications and Allergies Home Medications Medication Instructions Recorded Confirmed Type Aspirin 81 mg PO DAILY 01/07/16 05/27/20 History Losartan Potassium 100 mg PO DAILY 01/07/16 05/27/20 History [place]-3 Fatty Acids [Florida-3] 1,000 mg PO DAILY 01/07/16 05/27/20 History Zolpidem Tartrate [Ambien Cr] 6.25 mg PO HS 01/07/16 05/27/20 History Systane Balance 1 drop BOTH EYES BID 05/14/17 05/27/20 History Calcium Carbonate/Vitamin D3 1 tab PO DAILY 06/04/19 05/27/20 History [Calcium 500-Vit D3 200 Tablet] Cholecalciferol [Vitamin D3 (25 1,000 unit PO DAILY 06/04/19 05/27/20 History Mcg = 1000 Iu)] Cranberry Fruit Extract [Cranberry] 200 mg PO DAILY 06/04/19 05/27/20 History Grapeseed 200mg 200 mg PO HS 06/04/19 05/27/20 History Magnesium Citrate 125 mg PO DAILY 06/04/19 05/27/20 History Multivitamins, Thera [Multivitamin 1 tab PO DAILY 06/04/19 05/27/20 History (formulary)] Vit C/E/Zn/Coppr/Lutein/Zeaxan 1 cap PO HS 06/04/19 05/27/20 History [Preservision Areds 2 Softgel] Vitamin E (Dl,Tocopheryl Acet) 400 unit PO DAILY 06/04/19 05/27/20 History [Vitamin E] Bimatoprost [Lumigan .01% Ophth 1 drop BOTH EYES HS 05/05/20 05/27/20 History Soln] Vitamin B Complex 1 cap PO DAILY 05/05/20 05/27/20 History Famotidine [Pepcid] 20 mg PO DAILY #30 tab 05/09/20 05/27/20 Rx Furosemide [Lasix] 40 mg PO BID@0900,1600 #60 tab 05/09/20 05/27/20 Rx Spironolactone [Aldactone] 25 mg PO DAILY #30 tab 05/09/20 05/27/20 Rx amLODIPine [Norvasc] 2.5 mg PO DAILY 05/27/20 05/27/20 History Allergies Allergy/AdvReac Type Severity Reaction Status Date / Time Sulfa (Sulfonamide Allergy Unknown Verified 05/27/20 17:37 Antibiotics) influenza virus vaccine qs AdvReac Severe Nausea & Verified 05/27/20 17:37 [id number] (36 mos, up) Vomiting [From Fluarix Quad] Tetracyclines AdvReac Hallucinati Verified 05/27/20 17:37 ons raw eggs AdvReac Diarrhea Uncoded 05/27/20 17:37 Surgical - Exam Vital Signs Temp Pulse Resp BP Pulse Ox 98.2 F 155 H 22 114/77 98 05/27/20 16:12 05/27/20 16:12 05/27/20 16:12 05/27/20 16:12 05/27/20 16:12 - General well developed, well nourished, no distress, no pain, obese - Eyes PERRL, normal ocular movement, no icteric - ENT normal pinna, normal nares, normal mucosa, no hearing loss, no congestion, dentures - Neck Neck is supple, no lymphadenopathy. no masses, no bruits, trachea midline, no venous distension - Respiratory Lung sounds are essentially clear to her bilateral upper lobes, diminished bilateral bases with few scattered crackles to her right lower lobe. No rhonchi or wheezes. Respirations are symmetrical and nonlabored. - Cardiovascular Regular rhythm and rate. S1 and S2 present, negative for S3 or gallop. Positive systolic murmur heard best to her left sternal border. No edema present. - Abdomen Abdomen is soft, nontender and nondistended. Active bowel sounds present in all 4 abdominal quadrants. No guarding or rigidity. No organomegaly appreciated. - Genitourinary Deferred - Rectum Deferred - Integumentary no rash, no growths, no abnormal pigmentation - Neurologic Cranial nerves II through XII intact. No motor or focal deficits. - Musculoskeletal normal gait, normal posture - Psychiatric oriented to time, oriented to person, oriented to place, speech is normal, memory intact Results - Labs 05/28/20 04:39 05/28/20 04:39 - Imaging Chest x-ray: report reviewed, image reviewed EKG: image reviewed Additional studies: LISA report reviewed. Assessment and Plan Assessment: 1. Severe mitral valve regurgitation with evidence of flail of the anterior mitral valve leaflet with a centric posteriorly directed jet 2. Moderate tricuspid valve regurgitation 3. Mild aortic valve regurgitation 4. Acute on chronic diastolic heart failure 5. Elevated troponin as high as 0.057 6. Elevated BUN and creatinine on admission, BUN 45 creatinine 1.49 7. Supraventricular tachycardia on admission status post adenosine 8. History of hypertension 9. Orthostatic hypotension with episodes of dizziness Plan: The patient was seen and examined at her bedside on the cardiac stepdown unit with her son and daughter present. Her chart and diagnostics were reviewed. Her case was discussed in detail with Dr. Jose Antonio Rizvi from cardiothoracic surgery. The usual course of open heart surgery was discussed with the patient, including risks and benefits. The patient is not wanting to undergo an open heart surgery due to her age, but is willing to be evaluated for a mitral valve clipping procedure. We will order a BNP level. Continue to maximize medical management including heart failure management. More recommendations to follow after she has been evaluated by the cardiothoracic surgeon who will further discuss treatment options with risks and benefits. Medical management and other comorbidities per primary care service. Thank you Dr. Sher for this consult and we will look forward to working with you in the care of this patient. Time with Patient: Greater than 30 <Jose Antonio Rizvi R - Last Filed: 06/02/20 08:02> Surgical - Exam Vital Signs Temp Pulse Resp BP Pulse Ox 98.2 F 155 H 22 114/77 98 05/27/20 16:12 05/27/20 16:12 05/27/20 16:12 05/27/20 16:12 05/27/20 16:12 Results - Labs 05/28/20 04:39 05/31/20 07:57 Assessment and Plan Assessment: 89 yof presents w CHF. Severe MR with anterior leaflet flail. High risk for Mitral valve surgery due to age, frailty, medical disease. Recommend consideration for Mitral clip.
[2020-05-30] MEDS: LATANOPROST 0.005% OPHTH DROPS 2.5 ML BTL BOTH EYES SCH (20:51)
[2020-05-30] MEDS: ZOLPIDEM 5 MG TAB PO SCH (20:51)
[2020-05-30] MEDS: VIT A,C & E-LUTEIN-MINERALS 1 EACH TAB PO SCH (21:00)
[2020-05-31 08:36] LABS: Calcium 9.3 mg/dL (8.4-10.2); Potassium 4.6 mmol/L (3.5-5.1)
[2020-05-31] MEDS: METOPROLOL SUCCINATE (ER) 25 MG TAB.ER.24H PO SCH ×2 (09:14→21:45)
[2020-05-31] MEDS: CHOLECALCIFEROL 1,000 UNIT TAB PO SCH (09:14)
[2020-05-31] MEDS: amLODIPine 2.5 MG TAB PO SCH (09:14)
[2020-05-31] MEDS: FUROSEMIDE 20 MG TAB PO SCH ×2 (09:14→17:05)
[2020-05-31] MEDS: MULTIVITAMINS, THERA 1 EACH TAB PO SCH (09:14)
[2020-05-31] MEDS: FAMOTIDINE 20 MG TAB PO SCH (09:14)
[2020-05-31] MEDS: ASPIRIN 81 MG PO SCH (09:14)
[2020-05-31] MEDS: HEPARIN SODIUM,PORCINE 5,000 UNIT/ML 1 ML VIAL SQ SCH ×2 (09:15→21:46)
[2020-05-31] MEDS: LOSARTAN 50 MG TAB PO SCH (09:15)
[2020-05-31] MEDS: CALCIUM CARB-VIT D 500MG-200UN 1 EACH TAB PO SCH (09:15)
--- NOTE | 2020-05-31 10:56 | P.PN ---
Subjective Progress Note Date: 05/31/20 HISTORY OF PRESENT ILLNESS: patient is status post LISA with Dr. Parmar revealing flailing of the anterior mitral leaflet with evidence of torrential mitral regurgitation. CTS was consulted for possible intervention. Patient examined this morning bedside. She denies chest pain or pressure. Denies shortness of breath. Vital signs are stable. PHYSICAL EXAM: VITAL SIGNS: Reviewed. GENERAL: Well-developed in no acute distress. NECK: Supple. No JVD or thyromegaly LUNGS: Respirations even and unlabored. Lungs essentially clear to auscultation bilaterally. HEART: Regular rate and rhythm. S1 and S2 heard. + systolic murmur EXTREMITIES: Normal range of motion. No clubbing or cyanosis. Peripheral pulses intact. No lower extremity edema ASSESSMENT: Severe mitral regurgitation Moderat tricuspid regurgitation Orthostatic hypotension SVT on admission status post adenosine Chronic diastolic heart failure History of hypertension Dyslipidemia PLAN: Continue current medical management Patient is currently awaiting evaluation by cardiothoracic surgery. Await CTS recommendations. Nurse practitioner note has been reviewed by physician. Signing provider agrees with the documented findings, assessment, and plan of care. Objective - Vital Signs Vital signs: Vital Signs Temp 97.4 F L 05/31/20 08:51 Pulse 60 05/31/20 08:51 Resp 16 05/31/20 08:51 BP 123/73 05/31/20 08:51 Pulse Ox 99 05/31/20 08:51 Intake & Output 05/30/20 05/31/20 05/31/20 18:59 06:59 18:59 Intake Total 425 Balance 425 Intake: IV 175 Oral 250 Other: Voiding Method Toilet Toilet Toilet # Voids 2 2 1 - Labs CBC & Chem 7: 05/28/20 04:39 05/31/20 07:57 Labs: Abnormal Lab Results - Last 24 Hours (Table) 05/31/20 Range/Units 07:57 BUN 35 H (7-17) mg/dL Creatinine 1.26 H (0.52-1.04) mg/dL Glucose 111 H (74-99) mg/dL
--- NOTE | 2020-05-31 11:32 | P.PN ---
Subjective Progress Note Date: 05/31/20 Principal diagnosis: Severe mitral valve regurgitation with evidence of flail of the anterior mitral valve leaflet with eccentric posteriorly directed jet, moderate tricuspid valve regurgitation, mild aortic valve regurgitation, acute on chronic diastolic heart failure, elevated troponin as high as 0.057, acute kidney injury with history of stage II chronic kidney disease, supraventricular tachycardia on admission status post adenosine, orthostatic hypotension with episodes of dizziness. Previous medical history of hypertension, hyperlipidemia not currently treated, DVT in both lower extremities not on anticoagulation, syncopal episodes, diverticulosis status post bowel resection, left leg vein stripping The patient is currently sitting up in bed in no acute distress. Denies any chest pain or shortness of breath, however she does state with increased activity she is short of breath and very dizzy. She awaits surgeons input for possibility of surgical intervention versus Mitraclip for her mitral valve disease. No new concerns. Objective - Vital Signs Vital signs: Vital Signs Temp 97.4 F L 05/31/20 08:51 Pulse 60 05/31/20 08:51 Resp 16 05/31/20 08:51 BP 123/73 05/31/20 08:51 Pulse Ox 99 05/31/20 08:51 Intake & Output 05/30/20 05/31/20 05/31/20 18:59 06:59 18:59 Intake Total 425 Balance 425 Intake: IV 175 Oral 250 Other: Voiding Method Toilet Toilet Toilet # Voids 2 2 1 - Constitutional General appearance: Present: cooperative, no acute distress - Respiratory Details: Lungs sounds diminished bilaterally. Respirations even, nonlabored. Currently on room air with oxygen saturation 99%. Able to achieve 1000 mL on her incentiv e spirometry. - Cardiovascular Details: S1, S2 present, positive systolic murmur. Regular rate and rhythm. Palpable peripheral pulses bilaterally. No edema present. No calf pain or tenderness noted. - Gastrointestinal Gastrointestinal Comment(s): Abdomen soft, nontender, nondistended. Active bowel sounds present 4 quadrants. Tolerating diet. - Genitourinary Genitourinary Comment(s): Continues to void - Integumentary Integumentary Comment(s): Skin is warm and dry with evidence of good perfusion - Neurologic Neurologic: Present: CNII-XII intact - Musculoskeletal Musculoskeletal: Present: gait normal, strength equal bilaterally - Psychiatric Psychiatric: Present: A&O x's 3, appropriate affect, intact judgment & insight - Allied health notes Allied health notes reviewed: nursing - Labs CBC & Chem 7: 05/28/20 04:39 05/31/20 07:57 Labs: Abnormal Lab Results - Last 24 Hours (Table) 05/31/20 Range/Units 07:57 BUN 35 H (7-17) mg/dL Creatinine 1.26 H (0.52-1.04) mg/dL Glucose 111 H (74-99) mg/dL Assessment and Plan Assessment: 1. Severe mitral valve regurgitation with evidence of flail of the anterior mitral valve leaflet with eccentric posteriorly directed jet 2. Moderate tricuspid valve regurgitation, mild aortic valve regurgitation 3. Acute on chronic diastolic heart failure 4. Elevated troponin as high as 0.057 5. Acute kidney injury with history of stage II chronic kidney disease 6. Supraventricular tachycardia on admission status post adenosine with conversion to normal sinus rhythm 7. Orthostatic hypotension with episodes of dizziness 8. History of hypertension 9. History of hyperlipidemia not currently treated 10. DVT in both lower extremities in the past not on anticoagulation 11. Syncopal episodes 12. Left leg vein stripping Plan: 1. Continue to maximize medical management including heart failure management 2. Dr. Hawkins will review the patient's echocardiogram films and make further recommendations for treatment 3. Increase activity, ambulate as tolerated 4. More recommendations to follow Seen and examined and agree with above Time with Patient: Greater than 30
[2020-05-31] MEDS: ZOLPIDEM 5 MG TAB PO SCH (21:45)
[2020-05-31] MEDS: LATANOPROST 0.005% OPHTH DROPS 2.5 ML BTL BOTH EYES SCH (21:45)
[2020-05-31] MEDS: VIT A,C & E-LUTEIN-MINERALS 1 EACH TAB PO SCH (21:46)
--- NOTE | 2020-06-01 07:55 | P.DS ---
Providers Date of admission: 05/30/20 07:30 Expected date of discharge: 06/01/20 Attending physician: Alexys Sher Consults: 05/27/20 17:47 Consult Physician Urgent Consulting Provider: [facility] Consult Reason/Comments: acute new onset svt Do you want consulting provider notified?: Yes Primary care physician: Barrie Khan [facility] Course: 60-year-old female one of Dr. Khan patient was seen 3 weeks ago for exacerbation of systolic congestive heart failure who is known to have history of DVT, hypertension, hyperlipidemia and mild diastolic heart failure on an ec hocardiogram who was post to see Dr. Gaona cardiology in his office in the meanwhile remain on current diuretics. Patient apparently had some help with her neighbor who went shopping for her on 05/27/2020 as she is putting her shopping back patient developed to have mild tachycardia was more shaky tiredness fatigue have mild chest tightness and discomfort she had A. fib bit showing on the screen pulse rate running 124 and as time goes by patient become more symptomatic with pressure and discomfort pulse rate and been climbing 136 and further 154 she ended up calling her neighbor and decided to come to the emergency department at [facility] without having to, by EMS. At the time was seen she was tachycardic with PVCs with? Of A. fib 1 dose of adenosine patient converted and become in the 70s continue to have quite bed shakiness discomfort and shortness of breath patient was hospitalized for the above problem. 05/28: Patient pulse rate has been good through the night with no A. fib no tachycardia metoprolol was added patient is waiting see cardiology today to my surprise her troponin ended up coming up patient will be kept in the hospital repeat another troponin discuss the possibility of intervention or at least stress test if needed. 05/29: Patient is doing better no further tachycardia, was seen cardiology his going for transesophageal echocardiogram tomorrow if found to have a flail mitral valve patient will go for heart cath otherwise might benefit from stress test or medical management at the point. 05/30: LISA was performed by Dr. Parmar which revealed flailing of the anterior mitral leaflet with evidence of torrential mitral regurgitation with eccentric posteriorly directed jet. At least moderate tricuspid regurgitation. Trileaflet aortic valve without stenosis with mild insufficiency. Mild pulmonic insufficiency. EF 55%, moderate left atrial dilatation. Intact intra-atrial septum. No pericardial effusion. Cardiology plan was to perform heart catheterization if LISA was abnormal. Anticipate this will be scheduled for tomorrow. Consult will be added for cardiothoracic surgery. Patient's only complaint is feeling tired and that she wants to go home. She denies having any chest pain. residential monitor has been a sinus rhythm. She has been afebrile, heart rate 60, blood pressure 115/67, pulse ox 96% on room air. 05/31: Cardiology has decided that heart catheterization is not necessary and recommend transferring the patient to [facility] for mitral clip. resource development manager has made arrangements for transfer and we have also spoken to Dr. Mariee at [facility]. Patient is agreeable to transfer. She denies any new complaints. No active chest pain or shortness of breath. She has been afebrile, heart rate 74, blood pressure 133/67, pulse ox 97% on room air. Patient will be transferred to [facility] today in stable condition. Discharge diagnoses: 1 acute arrhythmia with SVT on admission status post adenosine, converted to sinus rhythm and maintained. 2 chronic diastolic heart failure. 3 elevated troponin, non-ST elevated myocardial infarction ruled out. 4 severe mitral regurgitation. 5 hyperlipidemia. 6 history of deep venous thrombosis. 7 hyperglycemia: On diet control. 8 stage II chronic kidney disease Discharge plan: transfer to [facility] Impression and plan of care have been directed as dictated by the signing physician. Franchesca Rowan nurse practitioner acting as scribe for signing physician. Patient Condition at Discharge: Stable Plan - Discharge Summary New Discharge Prescriptions: No Action Zolpidem Tartrate [Ambien Cr] 6.25 mg PO HS Losartan Potassium 100 mg PO DAILY Aspirin 81 mg PO DAILY Boydton-3 Fatty Acids [Boydton-3] 1,000 mg PO DAILY Systane Balance 1 drop BOTH EYES BID Vitamin E (Dl,Tocopheryl Acet) [Vitamin E] 400 unit PO DAILY Cholecalciferol [Vitamin D3 (25 Mcg = 1000 Iu)] 1,000 unit PO DAILY Multivitamins, Thera [Multivitamin (formulary)] 1 tab PO DAILY Magnesium Citrate 125 mg PO DAILY Grapeseed 200mg 200 mg PO HS Cranberry Fruit Extract [Cranberry] 200 mg PO DAILY Calcium Carbonate/Vitamin D3 [Calcium 500-Vit D3 200 Tablet] 1 tab PO DAILY Vit C/E/Zn/Coppr/Lutein/Zeaxan [Preservision Areds 2 Softgel] 1 cap PO HS Bimatoprost [Lumigan .01% Ophth Soln] 1 drop BOTH EYES HS Vitamin B Complex 1 cap PO DAILY Spironolactone [Aldactone] 25 mg PO DAILY #30 tab Furosemide [Lasix] 40 mg PO BID@0900,1600 #60 tab Famotidine [Pepcid] 20 mg PO DAILY #30 tab amLODIPine [Norvasc] 2.5 mg PO DAILY Discharge Medication List Aspirin 81 mg PO DAILY 01/07/16 [History] Losartan Potassium 100 mg PO DAILY 01/07/16 [History] Boydton-3 Fatty Acids [Boydton-3] 1,000 mg PO DAILY 01/07/16 [History] Zolpidem Tartrate [Ambien Cr] 6.25 mg PO HS 01/07/16 [History] Systane Balance 1 drop BOTH EYES BID 05/14/17 [History] Calcium Carbonate/Vitamin D3 [Calcium 500-Vit D3 200 Tablet] 1 tab PO DAILY 06/04/19 [History] Cholecalciferol [Vitamin D3 (25 Mcg = 1000 Iu)] 1,000 unit PO DAILY 06/04/19 [History] Cranberry Fruit Extract [Cranberry] 200 mg PO DAILY 06/04/19 [History] Grapeseed 200mg 200 mg PO HS 06/04/19 [History] Magnesium Citrate 125 mg PO DAILY 06/04/19 [History] Multivitamins, Thera [Multivitamin (formulary)] 1 tab PO DAILY 06/04/19 [History] Vit C/E/Zn/Coppr/Lutein/Zeaxan [Preservision Areds 2 Softgel] 1 cap PO HS 06/04/19 [History] Vitamin E (Dl,Tocopheryl Acet) [Vitamin E] 400 unit PO DAILY 06/04/19 [History] Bimatoprost [Lumigan .01% Ophth Soln] 1 drop BOTH EYES HS 05/05/20 [History] Vitamin B Complex 1 cap PO DAILY 05/05/20 [History] Famotidine [Pepcid] 20 mg PO DAILY #30 tab 05/09/20 [Rx] Furosemide [Lasix] 40 mg PO BID@0900,1600 #60 tab 05/09/20 [Rx] Spironolactone [Aldactone] 25 mg PO DAILY #30 tab 05/09/20 [Rx] amLODIPine [Norvasc] 2.5 mg PO DAILY 05/27/20 [History] Follow up Appointment(s)/Referral(s): Mo Parmar MD [Family Provider] - 1 Week [facility], [NON-STAFF] - 1-2 Days Barrie Khan MD [Primary Care Provider] - 1-2 days Patient Instructions/Handouts: Heart Palpitations (DC)
[2020-06-01] MEDS: LOSARTAN 50 MG TAB PO SCH (08:49)
[2020-06-01] MEDS: METOPROLOL SUCCINATE (ER) 25 MG TAB.ER.24H PO SCH ×2 (08:50→20:56)
[2020-06-01] MEDS: MULTIVITAMINS, THERA 1 EACH TAB PO SCH (08:50)
[2020-06-01] MEDS: ASPIRIN 81 MG PO SCH (08:50)
[2020-06-01] MEDS: CHOLECALCIFEROL 1,000 UNIT TAB PO SCH (08:50)
[2020-06-01] MEDS: FAMOTIDINE 20 MG TAB PO SCH (08:50)
[2020-06-01] MEDS: FUROSEMIDE 20 MG TAB PO SCH ×2 (08:50→18:27)
[2020-06-01] MEDS: amLODIPine 2.5 MG TAB PO SCH (08:51)
[2020-06-01] MEDS: HEPARIN SODIUM,PORCINE 5,000 UNIT/ML 1 ML VIAL SQ SCH ×2 (08:51→20:55)
[2020-06-01] MEDS: CALCIUM CARB-VIT D 500MG-200UN 1 EACH TAB PO SCH (08:53)
--- NOTE | 2020-06-01 10:25 | P.PN ---
<Salma Raymond Joce - Last Filed: 06/01/20 10:23> Subjective Progress Note Date: 06/01/20 HISTORY OF PRESENT ILLNESS: Patient examined this morning at the bedside. She denies chest pain or pressure. Denies shortness of breath. Vital signs are stable. PHYSICAL EXAM: VITAL SIGNS: Reviewed. GENERAL: Well-developed in no acute distress. NECK: Supple. No JVD or thyromegaly LUNGS: Respirations even and unlabored. Lungs essentially clear to auscultation bilaterally. HEART: Regular rate and rhythm. S1 and S2 heard. + systolic murmur EXTREMITIES: Normal range of motion. No clubbing or cyanosis. Peripheral pulses intact. No lower extremity edema ASSESSMENT: Severe mitral regurgitation Moderat tricuspid regurgitation Orthostatic hypotension SVT on admission status post adenosine Chronic diastolic heart failure History of hypertension Dyslipidemia PLAN: Patient is to be transferred to [facility] for MitraClip procedure today Nurse practitioner note has been reviewed by physician. Signing provider agrees with the documented findings, assessment, and plan of care. Objective - Vital Signs Vital signs: Vital Signs Temp 97.5 F L 06/01/20 03:52 Pulse 69 06/01/20 09:00 Resp 18 06/01/20 09:00 BP 137/69 06/01/20 09:00 Pulse Ox 97 06/01/20 09:00 Intake & Output 05/31/20 06/01/20 06/01/20 18:59 06:59 18:59 Intake Total 250 240 Balance 250 240 Intake: Oral 250 240 Other: Voiding Method Toilet Toilet Toilet # Voids 2 1 - Labs CBC & Chem 7: 05/28/20 04:39 05/31/20 07:57 <Dario Tomas - Last Filed: 06/01/20 15:16> Subjective Patient with another episode of lightheadedness with walking to the bathroom, improved with sitting down in bed. She has been fairly symptomatic with standing likely from her mitral regurgitation however no significant heart failure on exam and vital signs stable. LISA shows severe mitral regurgitation with flail leaflet. Surgery team patient high risk and therefore we will transfer patient to [facility] for evaluation of mitral clip. Dario Tomas DO Objective - Vital Signs Vital signs: Vital Signs Temp 97.5 F L 06/01/20 03:52 Pulse 69 06/01/20 09:00 Resp 18 06/01/20 09:00 BP 137/69 06/01/20 09:00 Pulse Ox 97 06/01/20 09:00 Intake & Output 05/31/20 06/01/20 06/01/20 18:59 06:59 18:59 Intake Total 250 240 Balance 250 240 Intake: Oral 250 240 Other: Voiding Method Toilet Toilet Toilet # Voids 2 1 - Labs CBC & Chem 7: 05/28/20 04:39 05/31/20 07:57
[2020-06-01] MEDS: LATANOPROST 0.005% OPHTH DROPS 2.5 ML BTL BOTH EYES SCH (20:55)
[2020-06-01] MEDS: ZOLPIDEM 5 MG TAB PO SCH (20:56)
[2020-06-01] MEDS: VIT A,C & E-LUTEIN-MINERALS 1 EACH TAB PO SCH (21:11)
[2020-06-02] MEDS: FAMOTIDINE 20 MG TAB PO SCH (07:59)
[2020-06-02] MEDS: CALCIUM CARB-VIT D 500MG-200UN 1 EACH TAB PO SCH (07:59)
[2020-06-02] MEDS: LOSARTAN 50 MG TAB PO SCH (08:02)
[2020-06-02] MEDS: FUROSEMIDE 20 MG TAB PO SCH ×2 (08:02→16:43)
[2020-06-02] MEDS: METOPROLOL SUCCINATE (ER) 25 MG TAB.ER.24H PO SCH ×2 (08:03→21:18)
[2020-06-02] MEDS: MULTIVITAMINS, THERA 1 EACH TAB PO SCH (08:03)
[2020-06-02] MEDS: CHOLECALCIFEROL 1,000 UNIT TAB PO SCH (08:04)
--- NOTE | 2020-06-02 08:19 | P.PN ---
Subjective Progress Note Date: 06/01/20 HISTORY OF PRESENT ILLNESS 60-year-old female one of Dr. Khan patient was seen 3 weeks ago for exacerbation of systolic congestive heart failure who is known to have history of DVT, hypertension, hyperlipidemia and mild diastolic heart failure on an echocardiogram who was post to see Dr. Gaona cardiology in his office in the meanwhile remain on current diuretics. Patient apparently had some help with her neighbor who went shopping for her on 05/27/2020 as she is putting her sh opping back patient developed to have mild tachycardia was more shaky tiredness fatigue have mild chest tightness and discomfort she had A. fib bit showing on the screen pulse rate running 124 and as time goes by patient become more symptomatic with pressure and discomfort pulse rate and been climbing 136 and further 154 she ended up calling her neighbor and decided to come to the emergency department at [facility] without having to, by EMS. At the time was seen she was tachycardic with PVCs with? Of A. fib 1 dose of adenosine patient converted and become in the 70s continue to have quite bed shakiness discomfort and shortness of breath patient was hospitalized for the above problem. 05/28: Patient pulse rate has been good through the night with no A. fib no tachycardia metoprolol was added patient is waiting see cardiology today to my surprise her troponin ended up coming up patient will be kept in the hospital repeat another troponin discuss the possibility of intervention or at least stress test if needed. 05/29: Patient is doing better no further tachycardia, was seen cardiology his going for transesophageal echocardiogram tomorrow if found to have a flail mitral valve patient will go for heart cath otherwise might benefit from stress test or medical management at the point. 05/30: LISA was performed by Dr. Parmar which revealed flailing of the anterior mitral leaflet with evidence of torrential mitral regurgitation with eccentric posteriorly directed jet. At least moderate tricuspid regurgitation. Trileaflet aortic valve without stenosis with mild insufficiency. Mild pulmonic insufficiency. EF 55%, moderate left atrial dilatation. Intact intra-atrial septum. No pericardial effusion. Etiology plan was to perform heart catheterization and LISA was abnormal. Anticipate this will be scheduled for tomorrow. Consult will be added for cardiothoracic surgery. Patient's only complaint is feeling tired and that she wants to go home. She denies having any chest pain. 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 She has been afebrile, heart rate 60, blood pressure 115/67, pulse ox 96% on room air. 05/31: Cardiology has decided that heart catheterization is not necessary and recommend transferring the patient to [facility] for mitral clip. enrollment manager has made arrangements for transfer and we have also spoken to Dr. Mariee at [facility]. Patient is agreeable to transfer. She denies any new complaints. No active chest pain or shortness of breath. She has been afebrile, heart rate 74, blood pressure 133/67, pulse ox 97% on room air. Patient will be transferred to [facility] today in stable condition. REVIEW OF SYSTEMS CONSTITUTIONAL: Well-developed no acute respiratory distress. No fevers. No chills. EYES: No icterus sclerae, no conjunctivitis. EARS, NOSE, MOUTH, THROAT, and FACE: No sore throat, lymphadenopathy, carotid bruits or deformity. RESPIRATORY: Positive shortness of breath no cough or wheezes. CARDIOVASCULAR: Positive palpitation positive PND and orthopnea question of angina as well. GASTROINTESTINAL: No Abd pain, Nausea or vomiting, no Diarrhea or constipation, No GI Bleed, no distention or masses. GENITOURINARY: Negative for Hematuria or UTI, no kidney stones. INTEGUMENT/BREAST: Negative for any muscular injury with mild osteoarthritis.. HEMATOLOGIC/LYMPHATIC: Negative for bleed or purpura. MUSCULOSKELTAL: Negative for Myalgia or arthralgia. NEURLOGICAL: No LOC, Sz or syncope, blurred vision dizziness or abnormality.. BEHAVIORAL/PSYCH: Negative. ENDOCRINE: Negative. PHYSICAL EXAMINATION General Appearance: Alert, cooperative, no distress, appears stated age. Neck HEENT: Supple, no lymphadenopathy, no thyroid enlargement, no carotid bruits. Lungs: Decreased breath some bilateral fine rhonchi no crackles possible mild expiratory wheezes. Chest Wall: Decrease expansion with deep inspiration no tenderness and no deformity was found on exam, no costochondral pain or discomfort. Heart: Regular rate and rhythm, S1, S2 positive S3 positive systolic murmur with PVCs.. Back: Symmetric, no curvature, ROM normal, no CVA tenderness. Abdomen: Soft, non-tender, bowel sounds active all four quadrants, no masses, no organomegaly. Extremities: Extremities normal, atraumatic, no cyanosis positive edema Pulses: 2+ and symmetric. Skin: Skin color, texture, tugor normal, no rashes or lesions. Neurologic: Alert oriented x3 cranial nerves II through XII intact, no motor deficit, no abnormal balance or gait. ASSESSMENT AND PLAN 1 acute arrhythmia with SVT on admission status post adenosine, converted to sinus rhythm and maintained. Cardiology consult appreciated. LISA as above. Cardiothoracic surgery following. Transfer to [facility] for evaluation of mitral clip. Patient will be transferred once arrangements are completed. 2 chronic diastolic heart failure. Continue losartan furosemide and spironolactone. 3 elevated troponin, non-ST elevated myocardial infarction ruled out. 4 severe mitral regurgitation. LISA as above. Cardiothoracic surgery evaluation. 5 hyperlipidemia: On diet control she is off statin completely. 6 history of deep venous thrombosis: Patient is off anticoagulation completely no further recurrent episode. 7 hyperglycemia: On diet control. 8 stage II chronic kidney disease: With GFR running between 25 and 40 continue hydration watch her kidney function with diuretics. 9 GI prophylaxis: Continue patient on Pepcid. Discharge plan: Home with [facility] Impression and plan of care have been directed as dictated by the signing physician. Franchesca Rowan nurse practitioner acting as scribe for signing physician. Objective - Vital Signs Vital signs: Vital Signs Temp 97.6 F 06/02/20 03:00 Pulse 69 06/02/20 03:00 Resp 18 06/02/20 03:00 BP 124/68 06/02/20 03:00 Pulse Ox 96 06/02/20 03:00 Intake & Output 06/01/20 06/02/20 06/02/20 18:59 06:59 18:59 Intake Total 240 480 Balance 240 480 Intake: Oral 240 480 Other: Voiding Method Toilet Toilet # Voids 4 1 - Labs CBC & Chem 7: 05/28/20 04:39 05/31/20 07:57
[2020-06-02] MEDS: amLODIPine 2.5 MG TAB PO SCH (08:46)
[2020-06-02] MEDS: HEPARIN SODIUM,PORCINE 5,000 UNIT/ML 1 ML VIAL SQ SCH ×2 (08:47→21:18)
[2020-06-02] MEDS: ASPIRIN 81 MG PO SCH (08:47)
--- NOTE | 2020-06-02 10:45 | P.PN ---
Subjective Progress Note Date: 06/02/20 HISTORY OF PRESENT ILLNESS: Patient examined this morning at the bedside. Patient admits to mild shortness breath with exertion which has been fairly stable. She admits to another 2 episodes yesterday of feeling lightheaded with minimal exertion. Discharge to [facility] has been in place however awaiting bed. PHYSICAL EXAM: VITAL SIGNS: Blood pressure 106/64, respiratory rate 16, pulse 58, afebrile GENERAL: Well-developed in no acute distress. NECK: Supple. No JVD or thyromegaly LUNGS: Respirations even and unlabored. Lungs essentially clear to auscultation bilaterally. HEART: Regular rate and rhythm. S1 and S2 heard. + holosystolic 5/6 murmur EXTREMITIES: Normal range of motion. No clubbing or cyanosis. Peripheral pulses intact. No lower extremity edema ASSESSMENT: Severe mitral regurgitation with flail leaflet Moderate tricuspid regurgitation Lightheadedness, most likely related to severe mitral regurgitation, positive orthostatics SVT on admission status post adenosine Chronic diastolic heart failure, appears euvolemic History of hypertension Dyslipidemia PLAN: She has been fairly symptomatic with standing likely from her mitral regurgitation. LISA shows severe mitral regurgitation with flail leaflet. Surgery has deemed patient high risk. Await transfer of patient to [facility] for evaluation of mitral clip. Objective - Vital Signs Vital signs: Vital Signs Temp 97.5 F L 06/02/20 07:50 Pulse 69 06/02/20 09:00 Resp 16 06/02/20 09:00 BP 107/65 06/02/20 07:50 Pulse Ox 97 06/02/20 07:50 Intake & Output 06/01/20 06/02/20 06/02/20 18:59 06:59 18:59 Intake Total 240 480 Balance 240 480 Intake: Oral 240 480 Other: Voiding Method Toilet Toilet Toilet # Voids 4 1 1 - Labs CBC & Chem 7: 05/28/20 04:39 05/31/20 07:57
[2020-06-02 14:46] VITALS: BMI 32.9
[2020-06-02] MEDS: VIT A,C & E-LUTEIN-MINERALS 1 EACH TAB PO SCH (21:19)
[2020-06-02] MEDS: ZOLPIDEM 5 MG TAB PO SCH (21:19)
[2020-06-02] MEDS: LATANOPROST 0.005% OPHTH DROPS 2.5 ML BTL BOTH EYES SCH (21:20)
[2020-06-03] MEDS: LOSARTAN 50 MG TAB PO SCH (07:54)
[2020-06-03] MEDS: HEPARIN SODIUM,PORCINE 5,000 UNIT/ML 1 ML VIAL SQ SCH (07:54)
[2020-06-03] MEDS: ASPIRIN 81 MG PO SCH (07:55)
[2020-06-03] MEDS: MULTIVITAMINS, THERA 1 EACH TAB PO SCH (07:55)
[2020-06-03] MEDS: CHOLECALCIFEROL 1,000 UNIT TAB PO SCH (07:55)
[2020-06-03] MEDS: CALCIUM CARB-VIT D 500MG-200UN 1 EACH TAB PO SCH (07:55)
[2020-06-03] MEDS: FUROSEMIDE 20 MG TAB PO SCH (07:55)
[2020-06-03] MEDS: FAMOTIDINE 20 MG TAB PO SCH (07:55)
[2020-06-03] MEDS: amLODIPine 2.5 MG TAB PO SCH (07:55)
[2020-06-03] MEDS: METOPROLOL SUCCINATE (ER) 25 MG TAB.ER.24H PO SCH (07:55)
[2020-06-03 09:17] VITALS: BP 125/75; PULSE 58; RESP 16; TEMP 97.9
--- NOTE | 2020-06-03 14:55 | P.PN ---
Subjective Progress Note Date: 06/02/20 HISTORY OF PRESENT ILLNESS 60-year-old female one of Dr. Khan patient was seen 3 weeks ago for exacerbation of systolic congestive heart failure who is known to have history of DVT, hypertension, hyperlipidemia and mild diastolic heart failure on an echocardiogram who was post to see Dr. Gaona cardiology in his office in the meanwhile remain on current diuretics. Patient apparently had some help with her neighbor who went shopping for her on 05/27/2020 as she is putting her sh opping back patient developed to have mild tachycardia was more shaky tiredness fatigue have mild chest tightness and discomfort she had A. fib bit showing on the screen pulse rate running 124 and as time goes by patient become more symptomatic with pressure and discomfort pulse rate and been climbing 136 and further 154 she ended up calling her neighbor and decided to come to the emergency department at [facility] without having to, by EMS. At the time was seen she was tachycardic with PVCs with? Of A. fib 1 dose of adenosine patient converted and become in the 70s continue to have quite bed shakiness discomfort and shortness of breath patient was hospitalized for the above problem. 05/28: Patient pulse rate has been good through the night with no A. fib no tachycardia metoprolol was added patient is waiting see cardiology today to my surprise her troponin ended up coming up patient will be kept in the hospital repeat another troponin discuss the possibility of intervention or at least stress test if needed. 05/29: Patient is doing better no further tachycardia, was seen cardiology his going for transesophageal echocardiogram tomorrow if found to have a flail mitral valve patient will go for heart cath otherwise might benefit from stress test or medical management at the point. 05/30: LISA was performed by Dr. Parmar which revealed flailing of the anterior mitral leaflet with evidence of torrential mitral regurgitation with eccentric posteriorly directed jet. At least moderate tricuspid regurgitation. Trileaflet aortic valve without stenosis with mild insufficiency. Mild pulmonic insufficiency. EF 55%, moderate left atrial dilatation. Intact intra-atrial septum. No pericardial effusion. Etiology plan was to perform heart catheterization and LISA was abnormal. Anticipate this will be scheduled for tomorrow. Consult will be added for cardiothoracic surgery. Patient's only complaint is feeling tired and that she wants to go home. She denies having any chest pain. quality assurance monitor body has been a sinus rhythm. She has been afebrile, heart rate 60, blood pressure 115/67, pulse ox 96% on room air. 05/31: Cardiology has decided that heart catheterization is not necessary and recommend transferring the patient to [facility] for mitral clip. regional manager has made arrangements for transfer and we have also spoken to Dr. Mariee at [facility]. Patient is agreeable to transfer. She denies any new complaints. No active chest pain or shortness of breath. She has been afebrile, heart rate 74, blood pressure 133/67, pulse ox 97% on room air. Patient will be transferred to [facility] today in stable condition. 06/02: Discharge was delayed due to bed availability at [facility]. Patient denies any new complaints. No changes to medications. Patient will be discharged once all arrangements are completed. REVIEW OF SYSTEMS CONSTITUTIONAL: Well-developed no acute respiratory distress. No fevers. No chills. EYES: No icterus sclerae, no conjunctivitis. EARS, NOSE, MOUTH, THROAT, and FACE: No sore throat, lymphadenopathy, carotid bruits or deformity. RESPIRATORY: Positive shortness of breath no cough or wheezes. CARDIOVASCULAR: Positive palpitation positive PND and orthopnea question of angina as well. GASTROINTESTINAL: No Abd pain, Nausea or vomiting, no Diarrhea or constipation, No GI Bleed, no distention or masses. GENITOURINARY: Negative for Hematuria or UTI, no kidney stones. INTEGUMENT/BREAST: Negative for any muscular injury with mild osteoarthritis.. HEMATOLOGIC/LYMPHATIC: Negative for bleed or purpura. MUSCULOSKELTAL: Negative for Myalgia or arthralgia. NEURLOGICAL: No LOC, Sz or syncope, blurred vision dizziness or abnormality.. BEHAVIORAL/PSYCH: Negative. ENDOCRINE: Negative. PHYSICAL EXAMINATION General Appearance: Alert, cooperative, no distress, appears stated age. Neck HEENT: Supple, no lymphadenopathy, no thyroid enlargement, no carotid br uits. Lungs: Decreased breath some bilateral fine rhonchi no crackles possible mild expiratory wheezes. Chest Wall: Decrease expansion with deep inspiration no tenderness and no deformity was found on exam, no costochondral pain or discomfort. Heart: Regular rate and rhythm, S1, S2 positive S3 positive systolic murmur with PVCs.. Back: Symmetric, no curvature, ROM normal, no CVA tenderness. Abdomen: Soft, non-tender, bowel sounds active all four quadrants, no masses, no organomegaly. Extremities: Extremities normal, atraumatic, no cyanosis positive edema Pulses: 2+ and symmetric. Skin: Skin color, texture, tugor normal, no rashes or lesions. Neurologic: Alert oriented x3 cranial nerves II through XII intact, no motor deficit, no abnormal balance or gait. ASSESSMENT AND PLAN 1 acute arrhythmia with SVT on admission status post adenosine, converted to sinus rhythm and maintained. Cardiology consult appreciated. LISA as above. Cardiothoracic surgery following. Transfer to [facility] for evaluation of mitral clip. Patient will be transferred once arrangements are completed. 2 chronic diastolic heart failure. Continue losartan furosemide and spironolactone. 3 elevated troponin, non-ST elevated myocardial infarction ruled out. 4 severe mitral regurgitation. LISA as above. Cardiothoracic surgery evaluation. 5 hyperlipidemia: On diet control she is off statin completely. 6 history of deep venous thrombosis: Patient is off anticoagulation completely no further recurrent episode. 7 hyperglycemia: On diet control. 8 stage II chronic kidney disease: With GFR running between 25 and 40 continue hydration watch her kidney function with diuretics. 9 GI prophylaxis: Continue patient on Pepcid. Discharge plan: Home with [facility] Impression and plan of care have been directed as dictated by the signing physician. Franchesca Rowan nurse practitioner acting as scribe for signing physician. Objective - Vital Signs Vital signs: Vital Signs Temp 97.8 F 06/03/20 03:00 Pulse 70 06/03/20 03:00 Resp 17 06/03/20 03:00 BP 118/79 06/03/20 03:00 Pulse Ox 97 06/03/20 03:00 Intake & Output 06/02/20 06/03/20 06/03/20 18:59 06:59 18:59 Intake Total 840 480 Balance 840 480 Weight 81.647 kg Intake: Oral 840 480 Other: Voiding Method Toilet Toilet # Voids 2 1 - Labs CBC & Chem 7: 05/28/20 04:39 05/31/20 07:57
== END 2020-06-03 10:08 | disposition short-term general hospital (02) | DRG 308 ==
LOC: EC 16:01 → 3NCARDOBS 17:47 → OBSVTOIN 05-30 07:30
PROVIDERS: ADMIT Internal Medicine Geriatric Medicine; ATTEND Internal Medicine Geriatric Medicine
PROC: B246ZZ4 Ultrasonography of Right and Left Heart, Transesophageal (ICD-10-PCS; principal; 2020-05-30 09:00)
DX: I47.1 Supraventricular tachycardia (principal); I50.43 Acute on chronic combined systolic (congestive) and diastolic (congestive) heart failure; N17.9 Acute kidney failure, unspecified; I13.0 Hypertensive heart and chronic kidney disease with heart failure and stage 1 through stage 4 chronic kidney disease, or unspecified chronic kidney disease; N18.2 Chronic kidney disease, stage 2 (mild); M19.90 Unspecified osteoarthritis, unspecified site; I37.1 Nonrheumatic pulmonary valve insufficiency; I08.3 Combined rheumatic disorders of mitral, aortic and tricuspid valves; I95.1 Orthostatic hypotension; E78.2 Mixed hyperlipidemia; R73.9 Hyperglycemia, unspecified; Z20.828 Contact with and (suspected) exposure to other viral communicable diseases; Z96.1 Presence of intraocular lens; Z79.899 Other long term (current) drug therapy; Z79.82 Long term (current) use of aspirin; Z88.2 Allergy status to sulfonamides; Z88.7 Allergy status to serum and vaccine; Z88.1 Allergy status to other antibiotic agents; Z91.012 Allergy to eggs; Z80.49 Family history of malignant neoplasm of other genital organs; Z82.49 Family history of ischemic heart disease and other diseases of the circulatory system; Z80.8 Family history of malignant neoplasm of other organs or systems; Z86.718 Personal history of other venous thrombosis and embolism; Z90.710 Acquired absence of both cervix and uterus; Z87.440 Personal history of urinary (tract) infections; Z90.49 Acquired absence of other specified parts of digestive tract; Z90.89 Acquired absence of other organs; Z98.42 Cataract extraction status, left eye; Z98.41 Cataract extraction status, right eye
CPT/HCPCS: 36415; 71046; 80048; 80053; 83735; 83880; 84443; 84484; 85025; 85610; 85730; 93005; 93312; 93320; 93325; 94760; 96361; 96374; 99291

== ENCOUNTER → 2020-06-22 | Outpatient (CLI) | payer MEDICARE ==
[2020-06-22 15:11] LABS: Basophils % (A) 0 %; Eosinophils # (A) 0.1 k/uL (0-0.7); Eosinophils % (A) 2 %; HCT 38.8 % (34.0-46.0); HGB 12.3 gm/dL (11.4-16.0); Lymphocytes # (A) 1.8 k/uL (1.0-4.8); Lymphocytes % (A) 25 %; MCH 30.8 pg (25.0-35.0); MCHC 31.8 g/dL (31.0-37.0); MCV 96.8 fL (80.0-100.0); Mean Platelet Volume 6.6; Monocytes # (A) 0.4 k/uL (0-1.0); Monocytes % (A) 6 %; Neutrophils # (A) 4.5 k/uL (1.3-7.7); Neutrophils % (A) 65 %; Platelet Count 226 k/uL (150-450); RDW 14.2 % (11.5-15.5)
[2020-06-23 00:40] LABS: African American GFR (CKD) 46.7 (60.0-200.0); Anion Gap 9.6 mmol/L (4.00-12.00); BUN/Creat Ratio 24.17 Ratio (12.00-20.00); Calcium 9.9 mg/dL (8.7-10.3); Carbon Dioxide 25.4 mmol/L (21.6-31.8); Non-African American GFR(CKD) 40.3 (60.0-200.0); Potassium 5.1 mmol/L (3.5-5.5)
== END | disposition home or self-care (01) ==
LOC: LABWHC1 14:18
PROVIDERS: ATTEND Family Medicine
DX: I50.9 Heart failure, unspecified (principal)
CPT/HCPCS: 36415; 80048; 85025

== ENCOUNTER → 2020-07-20 | Outpatient (CLI) | payer MEDICARE ==
[2020-07-20 09:34] LABS: HCT 40.9 % (34.0-46.0); HGB 13.5 gm/dL (11.4-16.0); MCH 32.3 pg (25.0-35.0); MCHC 33.1 g/dL (31.0-37.0); MCV 97.5 fL (80.0-100.0); Platelet Count 194 k/uL (150-450); RDW 13.7 % (11.5-15.5)
[2020-07-20 17:18] LABS: African American GFR (CKD) 46.7 (60.0-200.0); Albumin 4.4 g/dL (3.80-4.90); Albumin/Globulin Ratio 1.83 (1.60-3.17); Anion Gap 12.2 mmol/L (4.00-12.00); BUN/Creat Ratio 17.5 Ratio (12.00-20.00); Calcium 9.9 mg/dL (8.7-10.3); Carbon Dioxide 25.8 mmol/L (21.6-31.8); Chol/HDL Ratio 3.6; Globulin 2.4 g/dL (1.6-3.3); LDL Cholesterol,Calculated 134.8 mg/dL (0.0-131.0); Non-African American GFR(CKD) 40.3 (60.0-200.0); Potassium 4.5 mmol/L (3.5-5.5); Total Bilirubin 0.5 mg/dL (0.2-1.2); Total Protein 6.8 g/dL (6.2-8.2); VLDL Calculation 47.2 mg/dL (5.00-40.00)
== END | disposition home or self-care (01) ==
LOC: LABWHC1 08:51
PROVIDERS: ATTEND Student in an Organized Health Care Education/Training Program
DX: I05.9 Rheumatic mitral valve disease, unspecified (principal); E78.5 Hyperlipidemia, unspecified
CPT/HCPCS: 36415; 80053; 80061; 83880; 85027

== ENCOUNTER 2021-01-13 09:08 | Emergency (ER) | payer MEDICARE ==
[2021-01-13 09:19] VITALS: RESP 18
--- NOTE | 2021-01-13 11:24 | ED ---
Lower Extremity Injury HPI - General Chief Complaint: Extremity Injury, Lower Stated Complaint: Black foot Time Seen by Provider: 01/13/21 10:10 Source: patient Mode of arrival: wheelchair Limitations: no limitations - History of Present Illness Initial Comments: He shouldn't is an 89-year-old female with history of hypertension, vascular disease, presenting to the emergency Department with complaints of a discoloration in her left foot that happened last night. Patient states she was watching TV, eating with her foot down, she went to put her slipper on and noticed that her foot appeared to be purplish black. She states she walked around and then put her feet up and the color quickly changed. She states she does have intermittent pains in her left lower leg. She doesn't a history of DVTs in her bilateral lower legs, she used to be on Coumadin, has been off of this for many years now. He denies any recent injuries or trauma to her legs. She denies any chest pain or shortness of breath, no cough. She denies any fevers or chills. She does not remember the name of her vascular doctor. She has no further complaints at this time. - Related Data Home Medications Medication Instructions Recorded Confirmed Aspirin 81 mg PO DAILY 01/07/16 01/13/21 Losartan Potassium 100 mg PO DAILY 01/07/16 01/13/21 Jupiter-3 Fatty Acids [Jupiter-3] 1,000 mg PO DAILY 01/07/16 01/13/21 Zolpidem Tartrate [Ambien Cr] 6.25 mg PO HS 01/07/16 01/13/21 Systane Balance 1 drop BOTH EYES QID PRN 05/14/17 01/13/21 Calcium Carbonate/Vitamin D3 1 tab PO DAILY 06/04/19 01/13/21 [Calcium 500-Vit D3 5 Mcg (200 Iu)] Cholecalciferol [Vitamin D3 (25 1,000 unit PO DAILY 06/04/19 01/13/21 Mcg = 1000 Iu)] Cranberry Fruit Extract [Cranberry] 200 mg PO DAILY 06/04/19 01/13/21 Grapeseed 200mg 200 mg PO HS 06/04/19 01/13/21 Magnesium Citrate 125 mg PO DAILY 06/04/19 01/13/21 Multivitamins, Thera [Multivitamin 1 tab PO DAILY 06/04/19 01/13/21 (formulary)] Vit C/E/Zn/Coppr/Lutein/Zeaxan 1 cap PO BID 06/04/19 01/13/21 [Preservision Areds 2 Softgel] Vitamin E (Dl,Tocopheryl Acet) 400 unit PO DAILY 06/04/19 01/13/21 [Vitamin E] Bimatoprost [Lumigan .01% Ophth 1 drop BOTH EYES HS 05/05/20 01/13/21 Soln] Vitamin B Complex 1 cap PO DAILY 05/05/20 01/13/21 Ubidecarenone [Co Q-10] 100 mg PO DAILY 01/13/21 01/13/21 Allergies Allergy/AdvReac Type Severity Reaction Status Date / Time Sulfa (Sulfonamide Allergy Unknown Verified 01/13/21 11:46 Antibiotics) influenza virus vaccine qs AdvReac Severe Nausea & Verified 01/13/21 11:46 [id number] (36 mos, up) Vomiting [From Fluarix Quad] Tetracyclines AdvReac Hallucinati Verified 01/13/21 11:46 ons raw eggs AdvReac Diarrhea Uncoded 01/13/21 11:46 Review of Systems ROS Statement: Those systems with pertinent positive or pertinent negative responses have been documented in the HPI. ROS Other: All systems not noted in ROS Statement are negative. Past Medical History Past Medical History: Deep Vein Thrombosis (DVT), Eye Disorder, Hyperlipidemia, Hypertension, Osteoarthritis (OA), Syncope, Vascular Disorder Additional Past Medical History / Comment(s): Diverticulosis/diverticulitis, DVT R leg post bowel resection, DVT L leg as a teen, arthritis in hands/legs and feet, varicosities bilateral legs, glaucoma/macular degeneration bilaterally, UTIs, not currently on RX for cholesterol or htn. History of Any Multi-Drug Resistant Organisms: None Reported Past Surgical History: Adenoidectomy, Appendectomy, Bowel Resection, Cholecystectomy, Hysterectomy, Orthopedic Surgery, Tonsillectomy Additional Past Surgical History / Comment(s): Bowel resection for diverticular disease, colonoscopies, D&C, left leg vein stripping, left wrist ligament surgery, bilateral cataracts/lens implants, cardiac cap to valve Past Anesthesia/Blood Transfusion Reactions: No Reported Reaction Additional Past Anesthesia/Blood Transfusion Reaction / Comment(s): Pt received blood associated with childbirth without reaction. Past Psychological History: No Psychological Hx Reported Smoking Status: Never smoker Past Alcohol Use History: None Reported Past Drug Use History: None Reported - Past Family History Brother(s) Family Medical History: Cancer Additional Family Medical History / Comment(s): skin cancer Sister(s) Family Medical History: Cancer Additional Family Medical History / Comment(s): Uterine cancer Mother Family Medical History: Coronary Artery Disease (CAD), Vascular Disorder Additional Family Medical History / Comment(s): Mother lived to be 85 yrs old. She had varicosities Father Family Medical History: No Reported History (Father at age 94 from old age had history of sinuses.) Additional Family Medical History / Comment(s): Father was healthy and lived till 94 yrs. He had sinus problems General Exam - General Exam Comments Initial Comments: GENERAL: Patient is well-developed and well-nourished. Patient is nontoxic and in no acute distress. HEAD: Atraumatic, normocephalic. EYES: Pupils equal round and reactive to light, extraocular movements intact, sclera anicteric, conjunctiva are normal. Eyelids were unremarkable. ENT: TMs normal, nares patent, oropharynx clear without exudates. Moist mucous membranes. NECK: Normal range of motion, supple without lymphadenopathy or JVD. LUNGS: Unlabored respirations. Breath sounds clear to auscultation bilaterally and equal. No wheezes rales or rhonchi. HEART: Regular rate and rhythm without murmurs, rubs or gallops. ABDOMEN: Soft, nontender, normoactive bowel sounds. No guarding, no rebound. No masses appreciated. : Deferred MUSCULOSKELETAL: Normal extremities with adequate strength and normal range of motion, no pitting or edema. No clubbing or cyanosis. Normal bilateral posterior tibial pulses, bilateral dorsal pedis pulses were not palpable. Feet are warm to the touch, sensation is intact, no pain. NEUROLOGICAL: Patient is alert and oriented x 3. Motor and sensory are also intact. Cranial nerves II through XII grossly intact. Symmetrical smile. Normal speech, normal gait. PSYCH: Normal mood, normal affect. SKIN: Warm, Dry, normal turgor, no rashes or lesions noted. Limitations: no limitations Course Vital Signs 01/13/21 01/13/21 09:12 11:43 Temperature 97.5 F L Pulse Rate 84 74 Respiratory 18 18 Rate Blood Pressure 187/87 177/87 O2 Sat by Pulse 97 96 Oximetry Medical Decision Making - Medical Decision Making Patient is an 89-year-old female presenting for coloration changes in her left foot that happened last night. She does have history of DVTs in both of her lower extremities in the past, she is no longer on blood thinners, has been off for years. No chest pain or shortness of breath. Ultrasound of the left lower extremity reveals no evidence for an acute DVT. I do recommend following up with a vascular doctor. I will give her a referral. Patient is stable for discharge at this time. Return parameters were discussed with her and she verbalized understanding. Case discussed with Dr. Graves. Disposition Clinical Impression: Vascular disorder Disposition: HOME SELF-CARE Condition: Stable Instructions (If sedation given, give patient instructions): Peripheral Vascular Disease (ED) Additional Instructions: Please return to the Emergency Department if symptoms worsen or any other concerns. Ultrasound was negative for a DVT of the left leg today. Please follow up with vascular doctor as discussed. Is patient prescribed a controlled substance at d/c from ED?: No Referrals: Barrie Khan MD [Primary Care Provider] - 1-2 days Jose Antonio Sanches DO [Doctor of Osteopathic Medicine] - 1-2 days Time of Disposition: 12:01
--- NOTE | 2021-01-13 11:43 | US ---
EXAMINATION TYPE: US venous doppler duplex LE LT DATE OF EXAM: 01/13/2021 11:07 AM COMPARISON: Prior bilateral venous ultrasound March 17, 2012 CLINICAL HISTORY: pain, color changes, hx of dvt. Patient states having a history of left leg DVT. O n aspirin. No swelling. Hx vein stripping SIDE PERFORMED: Left TECHNIQUE: The lower extremity deep venous system is examined utilizing real time linear array sonog yashira with graded compression, doppler sonography and color-flow sonography. VESSELS IMAGED: Common Femoral Vein Deep Femoral Vein Greater Saphenous Vein *- not visualized Femoral Vein Popliteal Vein Small Saphenous Vein * Proximal Calf Veins- not well seen (* superficial vessels) Left Leg: Negative for DVT Grayscale, color doppler, spectral doppler imaging performed of the deep veins of the left lower extr emity. There is normal flow, compressibility, vascular waveforms. Suboptimal evaluation of the super ficial greater saphenous vein likely harvested and proximal calf veins below the left knee. IMPRESSION: Suboptimal study without ultrasound evidence for acute DVT in the left lower extremity .
[2021-01-13 12:15] VITALS: BP 181/93; PULSE 76; TEMP 98
== END 2021-01-13 12:14 | disposition home or self-care (01) ==
LOC: EC 09:08
DX: I99.9 Unspecified disorder of circulatory system (principal); E78.5 Hyperlipidemia, unspecified; I10 Essential (primary) hypertension; M19.90 Unspecified osteoarthritis, unspecified site; Z90.89 Acquired absence of other organs; Z90.49 Acquired absence of other specified parts of digestive tract; Z90.710 Acquired absence of both cervix and uterus; Z90.09 Acquired absence of other part of head and neck; Z86.718 Personal history of other venous thrombosis and embolism; Z79.82 Long term (current) use of aspirin
CPT/HCPCS: 99283

== ENCOUNTER → 2021-05-02 | Outpatient (CLI) | payer MEDICARE ==
[2021-05-02 19:05] LABS: Hemoglobin A1C 6.3 % (4.0-6.0)
== END | disposition home or self-care (01) ==
LOC: LABWHC1 09:50
PROVIDERS: ATTEND Family Medicine
DX: R73.9 Hyperglycemia, unspecified (principal)
CPT/HCPCS: 36415; 83036